=== PATIENT | male | born 1965 | race African-American/Black ===

== ENCOUNTER 2019-10-28 00:05 | Inpatient (IN) | payer SELFPAY ==
[2019-10-28] MEDS ORDERED: hydrALAZINE 20 MG/ML VIAL ONE (00:29)
[2019-10-28] MEDS ORDERED: niCARdipine 20MG In NaCl 20 MG/200 ML BAG ONE (01:00)
[2019-10-28] MEDS ORDERED: niCARdipine 25 MG in Sodium Chloride 0.9% 250 ML 240 ML IVPB SCH (03:00)
[2019-10-28 03:04] LABS: Troponin I 0.053 ng/mL (< 0.028)
[2019-10-28] MEDS ORDERED: Acetaminophen 650 MG Suppository PR PRN (03:11)
[2019-10-28] MEDS ORDERED: Ondansetron ODT 4 MG TAB PO PRN (03:11)
[2019-10-28] MEDS ORDERED: Senokot S 8.6-50 MG TAB PO PRN (03:11)
[2019-10-28] MEDS ORDERED: Ondansetron PF 4 MG/2 ML Vial IVP PRN (03:11)
[2019-10-28] MEDS ORDERED: Acetaminophen 325 MG TAB PO PRN (03:11)
[2019-10-28] MEDS ORDERED: Guaifenesin DM 100-10/5 ML UDCUP PO PRN (03:11)
[2019-10-28] MEDS ORDERED: niCARdipine 25 MG in Sodium Chloride 0.9% 250 ML 250 ML IVPB SCH (03:15)
[2019-10-28] MEDS ORDERED: Nitroglycerin 2% Ointment 1 INCH/1 GM Packet TOP SCH (03:15)
[2019-10-28] MEDS ORDERED: Diazepam 5 MG TAB PO PRN (03:18)
[2019-10-28] MEDS ORDERED: Thiamine HCl 200 MG/2 ML VIAL IM SCH (03:30)
[2019-10-28] MEDS ORDERED: Diazepam 5 MG TAB PO SCH (03:30)
[2019-10-28 04:25] LABS: #Basophils 0.1 thou/uL (0.0-0.2); #Lymphocytes 1.7 thou/uL (1.20-3.40); #Monocytes 0.4 thou/uL (0.11-0.59); #Neutrophils 3.3 thou/uL (1.40-6.50); %Eosinophils 0.4 % (0.0-10.0); %Lymphocytes 30.5 % (21.0-51.0); %Monocytes 7.9 % (0.0-10.0); %Neutrophils 60.2 % (42.0-75.0); Hemoglobin 17.2 g/dL (14.0-18.0); Mean Corpuscular HGB CONC 31.7 g/dL (32.0-36.0); Mean Corpuscular Hemoglobin 29.4 pg (27.0-31.0); Mean Corpuscular Volume 92.5 fL (78.0-98.0); Mean Platelet Volume 7.9 fL (7.4-10.4); Platelet Count 402 thou/uL (130-400); RBC Distribution Width 13.3 % (11.5-14.5); Red Blood Cell (RBC) Count 5.87 mill/uL (4.70-6.10); White Blood Cell (WBC) Count 5.5 thou/uL (4.8-10.8)
[2019-10-28 04:32] LABS: Anion Gap 18 mmol/L (10-20); BUN (Urea Nitrogen) 28 mg/dL (8.4-25.7); Calc. Creatinine Clearance 57 mL/min (70-130); Calcium 9.7 mg/dL (7.8-10.44); Carbon Dioxide 24 mmol/L (22-29); Chloride 102 mmol/L (98-107); Estimated GFR-MDRD 50; Glucose 95 mg/dL (70-105); Potassium 3.5 mmol/L (3.5-5.1); Sodium 140 mmol/L (136-145)
--- NOTE | 2019-10-28 04:38 | HP ---
PRIMARY CARE PHYSICIAN: None. CHIEF COMPLAINT: Edema. HISTORY OF PRESENT ILLNESS: This is a 54-year-old male with no known past medical history, who does abuse alcohol. He presents with 1 to 1-1/2 week history of increasing lower extremity edema. This is associated with some orthopnea and paroxysmal nocturnal dyspnea and with a very short episode of sharp left-sided chest pain about a week ago that was self-limited. The patient reports that his edema symptoms in his lower extremities got worse over the week. He also had started swelling on his scrotum and upper legs and so he went to the emergency room in [place]. There, he was found to have acute congestive heart failure with severely elevated blood pressures, significant edema, elevated brain natriuretic peptide, also elevated D-dimer and elevated creatinine. The patient was given Lasix and nitroglycerin and transferred here. His blood pressures remained uncontrolled into the 200 systolic and so he was given hydralazine and then started on nicardipine drip and admitted to the CCU. The patient reports that the edema of his scrotum and upper legs had gone. The lower extremity edema is improving. He has been peeing a lot since the Lasix in the in the emergency room. He has no chest pain or current shortness of breath, overall is feeling better. REVIEW OF SYSTEMS: CONSTITUTIONAL: No fevers. No chills. EYES: No double vision or blurred vision. ENT: No congestion, drainage, or sore throat. CARDIOVASCULAR: See HPI. PULMONARY: See HPI. No current coughing, wheezing, or shortness of breath. GASTROINTESTINAL: No abdominal pain. No nausea or vomiting. No diarrhea or constipation. GENITOURINARY: No dysuria or hematuria. MUSCULOSKELETAL: No muscle aches or joint pains, but he does have some soreness in his feet and ankles from walking with swollen legs. SKIN: No rashes or lesions noted. NEUROLOGIC: No numbness, tingling, or focal weakness. The patient does report that he stopped drinking any alcohol about 3 days ago because he was concerned about his worsening symptoms. He has not had any shakiness or withdrawal symptoms. PAST MEDICAL HISTORY: None. PAST SURGICAL HISTORY: Leg surgery as a child for fracture repair. SOCIAL HISTORY: The patient reports he drinks 8 to 9 beers per day along with 2 to 3 whiskies. No tobacco use. No illicit drug use. He is single, lives by himself. He is a full code. Should he be incapacitated, his medical decision maker would be his mother, Liza Grant. FAMILY HISTORY: Mother just recently developed some sort of mild heart problem. No other known family medical history. ALLERGIES: NO KNOWN DRUG ALLERGIES. CURRENT MEDICATIONS: None. PHYSICAL EXAMINATION: VITAL SIGNS: Blood pressure 147/101, pulse 103, respirations 22, temperature 97.9, O2 saturation 100% on room air. GENERAL: This is a well-developed, well-nourished -[place]ron[place] male, in no acute distress. HEENT: Pupils are equal, round, and reactive to light. Oropharynx clear without lesions, erythema, or exudate. NECK: Supple. No lymphadenopathy. No thyroid nodules or enlargement. He has some mild JVD. No hepatojugular reflux. HEART: Regular rhythm. Mildly tachycardic. No murmurs, rubs, or gallops. LUNGS: Clear to auscultation bilaterally. No wheezes, crackles, or rhonchi. ABDOMEN: Soft, nontender to palpation. Normoactive bowel sounds. No hepatosplenomegaly or other masses. EXTREMITIES: The patient has 1+ pitting edema to feet, ankles, and legs. This is improved since being in the outside emergency room per the patient. SKIN: No rashes or other lesions noted. NEUROLOGIC: The patient moves all extremities equally. No facial droop. PSYCHIATRIC: Alert and oriented x3. Normal mood and affect. DIAGNOSTIC STUDIES: LABORATORY RESULTS: CBC grossly within normal limits. Coagulation profile with an elevated D-dimer at 3.03. Complete metabolic panel is notable for a potassium of 3.4, carbon dioxide of 21, BUN of 30, creatinine of 1.8, alkaline phosphatase of 121, creatine kinase of 203, the rest is normal. Initial troponin is 0.028 and increased to 0.053 on recheck. Brain natriuretic peptide was elevated at 1819. Urinalysis was negative for infection. Toxicology screen was negative for any illicit drugs. IMAGING STUDIES: Chest x-ray; I did review the chest x-ray done in the emergency room along with the radiologist's report. It does show some cardiomegaly with pulmonary vascular congestion and possible edema consistent with congestive heart failure. EKG done in the emergency room shows sinus tachycardia at 107 beats per minute with no ectopic beats. Normal conduction. There was some T-wave inversions in V4, V5, and V6 and Q-waves in lead 3. ASSESSMENT: 1. Acute congestive heart failure, uncertain etiology, undetermined type. We will continue the patient's Lasix, will control blood pressure, and we will get an echocardiogram. The patient's CHF may be due to direct toxic effect of alcohol versus long-standing uncontrolled hypertension versus coronary artery disease in origin. We will consult Cardiology to assist with management. We will start the patient on carvedilol and lisinopril. 2. Hypertensive emergency. We will continue Cardene drip and wean off as tolerated as we give Lasix, carvedilol, and lisinopril to improve blood pressure control. 3. Alcohol abuse. We will put the patient on ASE protocol in case if he develops any withdrawal symptoms. 4. Renal failure, uncertain baseline creatinine levels. This is likely elevated due to his acute congestive heart failure. We will watch for any improvement as we diurese. 5. Elevated D-dimer. We will get V/Q scan to rule out pulmonary embolism. 6. Gastrointestinal prophylaxis. Put the patient on Pepcid twice a day. 7. Deep venous thrombosis prophylaxis. Put the patient on Lovenox subcu. 8. Code status. The patient is a full code. Should he be incapacitated, his mother would be his medical decision maker, her name is Liza English. Job ID: [id number]
[2019-10-28 05:23] LABS: Troponin I 0.062 ng/mL (< 0.028)
[2019-10-28] MEDS: Furosemide 40 MG/4 ML VIAL SLOW IVP SCH ×2 (06:10→16:24)
--- NOTE | 2019-10-28 08:14 | CON ---
DATE OF CONSULTATION: 10/28/2019 CONSULTING PHYSICIAN: Dr. Sinclair. REASON FOR CONSULTATION: Hypertensive emergency. HISTORY OF PRESENT ILLNESS: Mr. Rudy English is a 54-year-old male, who was admitted last night with increasing shortness of breath and lower extremity edema. He was found to be in profound acute congestive heart failure with grossly elevated blood pressure and BNP. He responded well to diuretics and blood pressure control with IV nicardipine. He is now off the drip. He has no previous medical history. PAST MEDICAL HISTORY: None. PAST SURGICAL HISTORY: Leg surgery for a fracture repair. SOCIAL HISTORY: Drinks 8 to 9 beers a day with 2 to 3 whiskeys a day. Nonsmoker. Does not consume alcohol. 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 FAMILY MEDICAL HISTORY: Remarkable for some kind of heart problem in his mother. ALLERGIES: NONE. MEDICATIONS: None. REVIEW OF SYSTEMS: Twelve-point review of systems is otherwise negative. PHYSICAL EXAMINATION: VITAL SIGNS: Temperature 98.5, pulse 87, blood pressure 145/97, O2 saturation 100%. GENERAL: He is a pleasant middle-aged male in no acute distress. HEENT: Unremarkable. NECK: No adenopathy or JVD. CARDIAC: S1, S2, regular with 3/6 holosystolic murmur at the left sternal border. LUNGS: Decreased breath sounds at the bases. ABDOMEN: Soft and nontender to palpation. EXTREMITIES: No clubbing or cyanosis. Trace pedal edema. LABORATORY DATA: Sodium 140, potassium 3.5, chloride 102, CO2 of 24, BUN 28, creatinine 1.7, and glucose 95. Troponin 0.062. BNP was over 1800. White blood cell count 5.5, hematocrit 54.3, and platelet count 402. His D-dimer was also noted to be elevated above 3. Chest x-ray shows pulmonary edema, cardiomegaly. ASSESSMENT: 1. Acute systolic heart failure. 2. Hypertensive emergency. 3. Alcohol abuse. 4. Polycythemia. 5. Acute renal insufficiency/chronic kidney disease. 6. Alcohol abuse. PLAN: 1. The patient will likely need to be seen by Cardiology and worked up for ischemic heart disease. Preliminary echo shows grossly diminished ejection fraction. 2. I doubt he has thromboembolic disease. Apparently, he cannot get a V/Q scan because of COVID-19 limitations on studies at the current time. Therefore, I will go ahead and just get Doppler studies of the lower extremities to rule out DVT. 3. He is stable for transfer to telemetry from my standpoint. Job ID: [id number]
[2019-10-28] MEDS: Enoxaparin Sodium 40 MG/0.4 ML SYRINGE SC SCH (09:18)
[2019-10-28] MEDS: Lisinopril 2.5 MG TAB PO SCH (09:18)
[2019-10-28] MEDS: Nitroglycerin 2% Ointment 1 INCH/1 GM Packet TOP SCH ×2 (09:18→20:42)
[2019-10-28] MEDS: Carvedilol 6.25 MG TAB PO SCH ×2 (09:19→20:41)
[2019-10-28] MEDS: Famotidine 20 MG TAB PO SCH ×2 (09:19→20:42)
[2019-10-28] MEDS: Folic Acid 1 MG TAB PO SCH (09:19)
[2019-10-28] MEDS: Aspirin Chewable 81 MG TAB PO SCH (09:19)
[2019-10-28] MEDS: Multivitamin W/ Minerals 1 TAB PO SCH (09:19)
--- NOTE | 2019-10-28 09:32 | ULT ---
EXAM: Bilateral lower extremity venous Doppler HISTORY: Bilateral lower extremity edema. FINDINGS: Grayscale, color-flow, Doppler evaluation, spectral analysis of the bilateral lower extremities venou s structures is performed with 2-D imaging. The bilateral common femoral, superficial femoral, popliteal, posterior tibial, proximal greater saphenous and profunda femoral veins are imaged. There is normal luminal compressibility, flow, and augmentation in the visualized deep venous structu res of the bilateral lower extremities. There is a lobulated anechoic cystic structure seen in the popliteal fossa measuring 5.1 cm x 3.5 cm x 1.8 cm. Color flow evaluation does not demonstrate flow within this structure. This is most suggestive of a Sheffield's cyst. IMPRESSION: 1. No evidence of a deep vein thrombosis in the visualized deep venous structures bilateral lower ext remities. 2. Large Sheffield's cyst right popliteal fossa.
--- NOTE | 2019-10-28 09:33 | PDOC.HOSPP ---
- Subjective Encounter Date: 10/28/19 Encounter Time: 09:31 Subjective: Mr. English was seen today in follow-up of hypertensive crisis and hypertensive crisis. He says he feels " great" . He is less short of breath, and the swelling in his lower extremities has improved. He can not remember when he saw a physician- likely more than a year. - Objective Vital Signs & Weight: Vital Signs (12 hours) Temp Pulse BP Pulse Ox 10/28/19 09:18 90 138/96 H 10/28/19 08:00 100 10/28/19 07:00 98.5 F 10/28/19 04:00 97.9 F 10/28/19 03:00 99 Weight Weight 179 lb 14.355 oz Most Recent Monitor Data Heart Rate from ECG 97 NIBP 147/104 NIBP BP-Mean 118 Respiration from ECG 28 SpO2 100 I&O: 10/27/19 10/28/19 10/29/19 06:59 06:59 06:59 Intake Total 701 Output Total 2550 2500 Balance -1849 -2500 Result Diagrams: 10/28/19 03:27 10/28/19 03:27 Hospitalist ROS - Medication Medications: Active Medications Generic Name Dose Route Start Last Admin Trade Name Freq PRN Reason Stop Dose Admin Aspirin 81 mg 10/28/19 09:00 10/28/19 09:19 Aspirin Chewable PO 81 mg DAILY KAROL Administration Carvedilol 6.25 mg 10/28/19 09:00 10/28/19 09:19 Coreg PO 6.25 mg BID KAROL Administration Enoxaparin Sodium 40 mg 10/28/19 09:00 10/28/19 09:18 Lovenox SC 40 mg 0900 KAROL Administration Famotidine 20 mg 10/28/19 09:00 10/28/19 09:19 Pepcid PO 20 mg BID KAROL Administration Folic Acid 1 mg 10/28/19 09:00 10/28/19 09:19 Folvite PO 1 mg DAILY KAROL Administration Furosemide 40 mg 10/28/19 06:00 10/28/19 06:10 Lasix SLOW IVP 40 mg 0600,1400 KAROL Administration Iron/Minerals/Multivitamins 1 tab 10/28/19 09:00 10/28/19 09:19 Theragran M PO 1 tab DAILY KAROL Administration Lisinopril 2.5 mg 10/28/19 09:00 10/28/19 09:18 Zestril PO 2.5 mg DAILY KAROL Administration Nitroglycerin 1 inch 10/28/19 09:00 10/28/19 09:18 Nitro-Bid 2% Ointment TOP 1 inch BID KAROL Administration - Exam Eye: PERRL Respiratory: CTAB (+ occasional rale at the base), no wheezes, no ronchi Gastrointestinal: soft, non-tender, non-distended, normal bowel sounds, no palpable masses, no hepatomegaly Hosp A/P (1) Hypertensive crisis Code(s): I16.9 - HYPERTENSIVE CRISIS, UNSPECIFIED Status: Acute (2) Acute heart failure Code(s): I50.9 - HEART FAILURE, UNSPECIFIED Status: Acute (3) Alcohol abuse Code(s): F10.10 - ALCOHOL ABUSE, UNCOMPLICATED Status: Acute - Plan * Hypertensive crisis- improved. He has been weaned off the cardene drip * Will transition him to oral medications * New onset CHF- this could be due to either uncontrolled HTN, Alcohol abuse, or both * Await Echo * Alcohol abuse- continue ASE protocol, and the dangers of alcohol abuse was discussed * Stable for transition out of the ICU
[2019-10-28] MEDS ORDERED: Lorazepam 1 MG TAB PO PRN (09:39)
--- NOTE | 2019-10-28 12:18 | CON ---
DATE OF CONSULTATION: 10/28/2019 INDICATION FOR CONSULTATION: A 54-year-old patient with new-onset congestive heart failure. HISTORY OF PRESENT ILLNESS: This is a very pleasant 54-year-old gentleman, who has had no previous cardiac history and no significant past medical history, presented after having a couple of weeks of lower extremity edema, he complained also of some scrotal edema. He denied any chest pain or significant shortness of breath. He did have some mild shortness of breath, but only with exertion. He has a long history of alcohol abuse. He drinks beer and 1 1/2 pints of whiskey a day, but has had no other significant risk factors of coronary artery disease. He denied any hypercholesterolemia, diabetes, or tobacco abuse. He was found to have significant hypertension when he arrived to the hospital by emergency room; however, this has improved overnight being on the Cardene drip and he denies any symptoms this morning. Echocardiogram has been performed and this shows severe decrease in left ventricular systolic function. Ejection fraction is estimated at 25% to 30%. The left ventricle is dilated moderately. The right ventricle is also mildly dilated. Both atria were dilated. He has mild mitral and tricuspid valve regurgitation. He also has [id number] pulmonary valve regurgitation and mild aortic valve regurgitation. 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 PAST MEDICAL HISTORY: Unremarkable for any significant operations or illnesses. MEDICATIONS: He is on no present medications. ALLERGIES: NONE. HE HAS BEEN GIVEN DIURETICS SINCE BEING IN THE HOSPITAL AND HE DIURESED SIGNIFICANTLY AND THE EDEMA HAS DECREASED. FAMILY HISTORY: His mother had what he describes as being a CVA, but otherwise there has been no family history of coronary artery disease. SOCIAL HISTORY: He is . I believe, he has been 2 to 3 times in the past. He has about 9 children through various relationships. He does continue to drink alcohol, but no tobacco abuse. REVIEW OF SYSTEMS: A 12-point review of systems was unremarkable except for what was noted in the history of present illness. PHYSICAL EXAMINATION: GENERAL: Reveals a well-developed, well-nourished gentleman, who is in no acute distress at this time. VITAL SIGNS: Blood pressure is about 150/103 at this time. Heart rate is about 86 and shows a regular rhythm. Respiratory rate is about 18. He is afebrile. HEENT: The head to be normocephalic and atraumatic. Carotid pulses are present. I did not hear any bruits. CHEST: Clear to auscultation at this time. I did not hear any rales, rhonchi, or wheezing. CARDIOVASCULAR: Reveals a regular rate and rhythm. I cannot hear any significant murmurs, heaves, thrills, bruits, or rubs. There was a normal S1 and S2. I cannot hear an S3 nor an S4 today. His chest otherwise was clear. ABDOMEN: Abdomen to be soft and nontender. Positive bowel sounds are present. EXTREMITIES: No clubbing or cyanosis. He had mild 1+ lower extremity edema with the feet and just above the ankles. Otherwise, no significant abnormalities were noted. Pedal pulses are present. NEUROLOGIC: The patient appears to be intact. SKIN: Warm and dry. LABORATORY DATA: His creatinine to be 1.8 and BUN was 30. Cardiac enzymes showed no evidence of myocardial infarction, but this could be considered a non-ST- segment elevation myocardial infarction type 2 as there was a slight increase in the cardiac enzymes at 0.028, the troponin now has increased up to 0.062. His BNP was significantly elevated at 1819. His WBC was 5.5, hemoglobin 17.2, hematocrit 54.3 with a platelet count of 402,000. Creatinine is 1.75 now with a BUN of 28. His chest x-ray showed evidence of cardiomegaly with what appears to be congestive heart failure symptoms with increased congestion. There were no obvious masses or nodules noted. IMPRESSION AND PLAN: A 54-year-old gentleman with new-onset congestive heart failure, which appears to be both diastolic as well as systolic. He does have some restrictive type pattern on the echocardiogram as well as severe decrease in left ventricular systolic function, which may be due to alcohol-induced cardiomyopathy or perhaps even genetic etiology of his cardiomyopathy. When he is better and diuresed, he will need to undergo stress testing or cardiac catheterization to evaluate his coronary status to ensure he does not have underlying coronary artery disease as the possible etiology of the cardiomyopathy. Also, he will need to undergo cholesterol studies to determine whether or not he has any significant hypercholesterolemia. We will continue to monitor the cardiac enzymes, but at this time he appears to be stable. We will continue to diurese the patient. His present medications at this time include magnesium. He has been on a Cardene drip, I believe this is now being tapered off. He is on Coreg 6.25 mg b.i.d. he has been placed on Lovenox as well as folic acid, Pepcid , Lasix is 40 mg IV b.i.d., lisinopril 2.5 mg a day, nitroglycerin ointment 1 inch b.i.d. He has also been given thiamine and magnesium as well as Tylenol and other p.r.n. medications. His Is and Os thus far, he has put out 2500 mL today, and yesterday, it was negative 1848 after putting out over 2.5 L yesterday after being given IV Lasix. We will continue to monitor the patient very carefully, but this time he denies any chest pain or significant shortness of breath, and based on his response to the diuretics, we will see how the patient does and then either schedule cardiac catheterization or stress testing to rule out evidence of underlying ischemia, but given the history of his cardiomyopathy, it may be best to proceed with a cardiac catheterization. If the ejection fraction does not improve after diuresis and medical management, he will need to be at least sent home with a LifeVest. Job ID: [id number] [email or web address]
[2019-10-29] MEDS ORDERED: Diazepam 5 MG TAB PO PRN (04:00)
[2019-10-29 05:00] LABS: Anion Gap 11 mmol/L (10-20); BUN (Urea Nitrogen) 20 mg/dL (8.4-25.7); Calc. Creatinine Clearance 64 mL/min (70-130); Calcium 8.5 mg/dL (7.8-10.44); Carbon Dioxide 30 mmol/L (22-29); Chloride 101 mmol/L (98-107); Estimated GFR-MDRD 57; Glucose 104 mg/dL (70-105); Potassium 3.4 mmol/L (3.5-5.1); Sodium 139 mmol/L (136-145)
[2019-10-29] MEDS: Furosemide 40 MG/4 ML VIAL SLOW IVP SCH ×2 (05:24→15:21)
[2019-10-29] MEDS ORDERED: Potassium Chloride 20 MEQ TAB PO SCH (09:00)
[2019-10-29] MEDS: Magnesium Oxide 400 MG TAB PO SCH (09:14)
[2019-10-29] MEDS: Lisinopril 2.5 MG TAB PO SCH (09:14)
[2019-10-29] MEDS: Multivitamin W/ Minerals 1 TAB PO SCH (09:15)
[2019-10-29] MEDS: Famotidine 20 MG TAB PO SCH ×2 (09:15→20:19)
[2019-10-29] MEDS: Thiamine 100 MG TAB PO SCH (09:15)
[2019-10-29] MEDS: Folic Acid 1 MG TAB PO SCH (09:16)
[2019-10-29] MEDS: Aspirin Chewable 81 MG TAB PO SCH (09:16)
[2019-10-29] MEDS: Carvedilol 6.25 MG TAB PO SCH ×2 (09:16→20:19)
[2019-10-29] MEDS: Nitroglycerin 2% Ointment 1 INCH/1 GM Packet TOP SCH ×2 (09:16→20:19)
[2019-10-29] MEDS: Enoxaparin Sodium 40 MG/0.4 ML SYRINGE SC SCH (09:17)
--- NOTE | 2019-10-29 09:45 | PDOC.CPN ---
- Subjective Date: 10/29/19 Time: 09:49 Interval history: The pt seen and examined. No overnight events. No cardiac complaints. - Objective Allergies/Adverse Reactions: Allergies Allergy/AdvReac Type Severity Reaction Status Date / Time No Known Allergies Allergy Verified 10/28/19 03:03 Visit Medications: Current Medications Acetaminophen (Tylenol) 650 mg PO Q4H PRN PRN Reason: Headache/Fever/Mild Pain (1-3) Last Admin: 10/28/19 18:38 Dose: 650 mg Acetaminophen (Tylenol) 650 mg AR Q4H PRN PRN Reason: Headache/Fever/Mild Pain (1-3) Aspirin (Aspirin Chewable) 81 mg PO DAILY [facility] Last Admin: 10/29/19 09:16 Dose: 81 mg Carvedilol (Coreg) 6.25 mg PO BID [facility] Last Admin: 10/29/19 09:16 Dose: 6.25 mg Diazepam (Valium) 5 mg PO Q4H PRN PRN Reason: FOR ASE 10 OR GREATER Enoxaparin Sodium (Lovenox) 40 mg SC 0900 [facility] Last Admin: 10/29/19 09:17 Dose: 40 mg Famotidine (Pepcid) 20 mg PO BID [facility] Last Admin: 10/29/19 09:15 Dose: 20 mg Folic Acid (Folvite) 1 mg PO DAILY [facility] Last Admin: 10/29/19 09:16 Dose: 1 mg Furosemide (Lasix) 40 mg SLOW IVP 0600,1400 [facility] Last Admin: 10/29/19 05:24 Dose: 40 mg Guaifenesin/Dextromethorphan (Robitussin Dm) 15 ml PO Q4H PRN PRN Reason: Cough Iron/Minerals/Multivitamins (Theragran M) 1 tab PO DAILY [facility] Last Admin: 10/29/19 09:15 Dose: 1 tab Lisinopril (Zestril) 2.5 mg PO DAILY [facility] Last Admin: 10/29/19 09:14 Dose: 2.5 mg Lorazepam (Ativan) 1 mg PO Q4H PRN PRN Reason: Anxiety/Agitation Magnesium Oxide (Magnesium Oxide) 400 mg PO DAILY [facility] Last Admin: 10/29/19 09:14 Dose: 400 mg Nitroglycerin (Nitro-Bid 2% Ointment) 1 inch TOP BID [facility] Last Admin: 10/29/19 09:16 Dose: 1 inch Ondansetron HCl (Zofran Odt) 4 mg PO Q6H PRN PRN Reason: Nausea/Vomiting Ondansetron HCl (Zofran) 4 mg IVP Q6H PRN PRN Reason: Nausea/Vomiting Potassium Chloride (K-Dur) 40 meq PO NOW [facility] Stop: 10/29/19 11:00 Last Admin: 10/29/19 09:13 Dose: 40 meq Senna/Docusate Sodium (Senokot S) 2 tab PO BID PRN PRN Reason: Constipation Sodium Chloride (Flush - Normal Saline) 10 ml IVF Q12HR [facility] Last Admin: 10/29/19 09:17 Dose: 10 ml Sodium Chloride (Flush - Normal Saline) 10 ml IVF PRN PRN PRN Reason: Saline Flush Thiamine HCl (Thiamine) 100 mg PO DAILY [facility] Last Admin: 10/29/19 09:15 Dose: 100 mg Vital Signs & Weight: Vital Signs Temp Pulse Resp BP Pulse Ox 10/29/19 09:07 99.1 F 91 14 129/96 H 98 10/29/19 02:57 97.5 F L 80 13 130/88 99 10/29/19 00:31 81 16 Admit Weight 179 lb 14.355 oz Weight 168 lb 4.8 oz - Physical Exam General: alert & oriented x3 HEENT: mucus membranes moist Neck: supple neck Cardiac: regular rate and rhythm, S1/S2 Lungs: decreased breath sounds - Labs Result Diagrams: 10/28/19 03:27 10/29/19 04:18 Troponin/CKMB Troponin I 0.062 ng/mL (< 0.028) H 10/28/19 04:41 - Telemetry Sinus rhythms and dysrhythmias: sinus rhythm - Assessment/Plan Assessment/Plan: 1. 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 HTN urgency - stable with current med 3. ETOH abuse - strongly recommend ETOH cessation MAR reviewed * Echo on 10/28/2019 with EF 25-30%, grade III dd, mild ERA, mod LAE, mild-mod MR, mild AR and TR, and mild-mod AR Pt. seen and eval. by me.I agree with the A/P by the GENETIC SUPERVISOR. If the creat. is stable then plan for cardiac cath in AM to evaluate for CAD. Will also re- evaluate the EF. If the EF if < 35% he will need a Life-Vest prior to d/c. Chest cleart. RRR, no edema,. I discussed the cardiac cath with the pt. Procedure and risks. If he is agree able then plan for cath in AM.
--- NOTE | 2019-10-29 11:01 | PDOC.HOSPP ---
- Subjective Encounter Date: 10/29/19 Encounter Time: 10:58 Subjective: Mr. English was seen today in follow-up of new onset CHF. He does not have any complaints today. He says he feels great. - Objective Vital Signs & Weight: Vital Signs (12 hours) Temp Pulse Resp BP Pulse Ox 10/29/19 09:07 99.1 F 91 14 129/96 H 98 10/29/19 02:57 97.5 F L 80 13 130/88 99 10/29/19 00:31 81 16 Weight Admit Weight 179 lb 14.355 oz Weight 168 lb 4.8 oz Most Recent Monitor Data Heart Rate from ECG 92 NIBP 148/113 NIBP BP-Mean 124 Respiration from ECG 23 SpO2 100 I&O: 10/28/19 10/29/19 10/30/19 06:59 06:59 06:59 Intake Total 701 1100 Output Total 4664 4762 Balance -8867 -2654 Result Diagrams: 10/28/19 03:27 10/29/19 04:18 Hospitalist ROS - Medication Medications: Active Medications Generic Name Dose Route Start Last Admin Trade Name Freq PRN Reason Stop Dose Admin Acetaminophen 650 mg 10/28/19 03:11 10/28/19 18:38 Tylenol PO 650 mg Q4H PRN Administration Headache/Fever/Mild Pain (1-3) Aspirin 81 mg 10/28/19 09:00 10/29/19 09:16 Aspirin Chewable PO 81 mg DAILY KAROL Administration Carvedilol 6.25 mg 10/28/19 09:00 10/29/19 09:16 Coreg PO 6.25 mg BID KAROL Administration Enoxaparin Sodium 40 mg 10/28/19 09:00 10/29/19 09:17 Lovenox SC 40 mg 0900 KAROL Administration Famotidine 20 mg 10/28/19 09:00 10/29/19 09:15 Pepcid PO 20 mg BID KAROL Administration Folic Acid 1 mg 10/28/19 09:00 10/29/19 09:16 Folvite PO 1 mg DAILY KAROL Administration Furosemide 40 mg 10/28/19 06:00 10/29/19 05:24 Lasix SLOW IVP 40 mg 0600,1400 KAROL Administration Iron/Minerals/Multivitamins 1 tab 10/28/19 09:00 04/16/20 09:15 Theragran M PO 1 tab DAILY KAROL Administration Lisinopril 2.5 mg 10/28/19 09:00 10/29/19 09:14 Zestril PO 2.5 mg DAILY KAROL Administration Magnesium Oxide 400 mg 10/29/19 09:00 10/29/19 09:14 Magnesium Oxide PO 400 mg DAILY KAROL Administration Nitroglycerin 1 inch 10/28/19 09:00 10/29/19 09:16 Nitro-Bid 2% Ointment TOP 1 inch BID KAROL Administration Potassium Chloride 40 meq 10/29/19 09:00 10/29/19 09:13 K-Dur PO 10/29/19 11:00 40 meq NOW KAROL Administration Sodium Chloride 10 ml 10/29/19 09:00 10/29/19 09:17 Flush - Normal Saline IVF 10 ml Q12HR KAROL Administration Thiamine HCl 100 mg 10/29/19 09:00 10/29/19 09:15 Thiamine PO 100 mg DAILY KAROL Administration - Exam Eye: PERRL Heart: RRR, no murmur, no gallops, no rubs, normal peripheral pulses Respiratory: CTAB, no wheezes, no rales, no ronchi, normal chest expansion Gastrointestinal: soft, non-tender, non-distended, normal bowel sounds, no palpable masses, no hepatomegaly Extremities: no cyanosis, 1+ LE edema (+ 1+ ankle edema in both lower extremities) Hosp A/P (1) Hypertensive crisis Code(s): I16.9 - HYPERTENSIVE CRISIS, UNSPECIFIED Status: Acute (2) Acute heart failure Code(s): I50.9 - HEART FAILURE, UNSPECIFIED Status: Acute (3) Alcohol abuse Code(s): F10.10 - ALCOHOL ABUSE, UNCOMPLICATED Status: Acute - Plan * Hypertensive crisis-resolved * HTN- blood pressure is much improved, on Lisinopril and carvediolol * New onset CHF- Cardiology input noted. Plan is for heart cath tomorrow * Alcohol abuse- continue ASE protocol, * Continue to monitor electrolytes
[2019-10-29] MEDS ORDERED: Lisinopril 5 MG TAB PO SCH (17:45)
[2019-10-29] MEDS ORDERED: Communication Order-Pharmacy FS SCH (21:45)
[2019-10-30 05:03] LABS: #Basophils 0.1 thou/uL (0.0-0.2); #Eosinphils 0.2 thou/uL (0.0-0.7); #Monocytes 0.6 thou/uL (0.11-0.59); #Neutrophils 1.9 thou/uL (1.40-6.50); %Basophils 1.3 % (0.0-1.0); %Eosinophils 3.7 % (0.0-10.0); %Lymphocytes 41.9 % (21.0-51.0); %Monocytes 12.6 % (0.0-10.0); %Neutrophils 40.5 % (42.0-75.0); Hemoglobin 14.9 g/dL (14.0-18.0); Mean Corpuscular HGB CONC 33.6 g/dL (32.0-36.0); Mean Corpuscular Hemoglobin 31.1 pg (27.0-31.0); Mean Corpuscular Volume 92.6 fL (78.0-98.0); Mean Platelet Volume 7.5 fL (7.4-10.4); Platelet Count 345 thou/uL (130-400); RBC Distribution Width 13.1 % (11.5-14.5); Red Blood Cell (RBC) Count 4.78 mill/uL (4.70-6.10); White Blood Cell (WBC) Count 4.7 thou/uL (4.8-10.8)
[2019-10-30 05:23] LABS: Anion Gap 10 mmol/L (10-20); BUN (Urea Nitrogen) 18 mg/dL (8.4-25.7); Calc. Creatinine Clearance 55 mL/min (70-130); Calcium 8.1 mg/dL (7.8-10.44); Carbon Dioxide 30 mmol/L (22-29); Chloride 100 mmol/L (98-107); Estimated GFR-MDRD 52; Glucose 94 mg/dL (70-105); Potassium 3.4 mmol/L (3.5-5.1); Sodium 137 mmol/L (136-145)
[2019-10-30] MEDS: Magnesium Oxide 400 MG TAB PO SCH (06:00)
[2019-10-30] MEDS: Furosemide 40 MG/4 ML VIAL SLOW IVP SCH (06:00)
[2019-10-30] MEDS: Carvedilol 6.25 MG TAB PO SCH ×2 (06:00→21:53)
[2019-10-30] MEDS: Famotidine 20 MG TAB PO SCH ×2 (06:01→21:52)
[2019-10-30] MEDS: Folic Acid 1 MG TAB PO SCH (06:01)
[2019-10-30] MEDS: Aspirin Chewable 81 MG TAB PO SCH (06:01)
[2019-10-30] MEDS: Nitroglycerin 2% Ointment 1 INCH/1 GM Packet TOP SCH (06:02)
[2019-10-30] MEDS: Multivitamin W/ Minerals 1 TAB PO SCH (06:02)
[2019-10-30] MEDS: Thiamine 100 MG TAB PO SCH (06:02)
[2019-10-30] MEDS ORDERED: Heparin 10,000 UNITS/1 ML VIAL ONE (07:22)
[2019-10-30] MEDS ORDERED: Verapamil 5 MG/2 ML VIAL ONE (07:22)
[2019-10-30] MEDS ORDERED: Nitroglycerin 100MG/250ML BOT 250 ML ONE (07:22)
[2019-10-30] MEDS ORDERED: Midazolam HCl 2 mg/2 ml Vial ONE (07:42)
[2019-10-30] MEDS ORDERED: Nitroglycerin 0.4 MG TAB (25 Tab Bottle) SL PRN (08:30)
[2019-10-30] MEDS ORDERED: Acetaminophen/Codeine 30-300mg Tablet PO PRN ×2 (08:30)
[2019-10-30] MEDS ORDERED: Sodium Chloride 0.9% 200 ML IV PRN (08:30)
--- NOTE | 2019-10-30 08:37 | PDOC.CPN ---
- Subjective Date: 10/30/19 Time: 08:00 - Review of Systems General: reports: fever/chills, weight/appetite/sleep changes Respiratory: reports: cough, shortness of breath Cardiovascular: reports: chest pain, edema Gastrointestinal: reports: nausea, vomiting Musculoskeletal: reports: pain, swelling Neurological: reports: numbness - Objective Allergies/Adverse Reactions: Allergies Allergy/AdvReac Type Severity Reaction Status Date / Time No Known Allergies Allergy Verified 10/28/19 03:03 Visit Medications: Current Medications Acetaminophen (Tylenol) 650 mg PO Q4H PRN PRN Reason: Headache/Fever/Mild Pain (1-3) Last Admin: 10/28/19 18:38 Dose: 650 mg Acetaminophen (Tylenol) 650 mg [place] Q4H PRN PRN Reason: Headache/Fever/Mild Pain (1-3) Acetaminophen/Codeine Phosphate (Tylenol #3) 1 tab PO Q4H PRN PRN Reason: Mild Pain (1-3) Acetaminophen/Codeine Phosphate (Tylenol #3) 2 tab PO Q4H PRN PRN Reason: Moderate Pain (4-6) Aspirin (Aspirin Chewable) 81 mg PO DAILY [facility] Last Admin: 10/30/19 06:01 Dose: 81 mg Carvedilol (Coreg) 6.25 mg PO BID [facility] Last Admin: 10/30/19 06:00 Dose: 6.25 mg Diazepam (Valium) 5 mg PO Q4H PRN PRN Reason: FOR ASE 10 OR GREATER Famotidine (Pepcid) 20 mg PO BID [facility] Last Admin: 10/30/19 06:01 Dose: 20 mg Folic Acid (Folvite) 1 mg PO DAILY [facility] Last Admin: 10/30/19 06:01 Dose: 1 mg Furosemide (Lasix) 40 mg SLOW IVP 0600,1400 [facility] Last Admin: 10/30/19 06:00 Dose: 40 mg Guaifenesin/Dextromethorphan (Robitussin Dm) 15 ml PO Q4H PRN PRN Reason: Cough Sodium Chloride (Normal Saline 0.9%) 200 mls @ 0 mls/hr IV ONE PRN PRN Reason: SBP < 90 Iron/Minerals/Multivitamins (Theragran M) 1 tab PO DAILY [facility] Last Admin: 10/30/19 06:02 Dose: 1 tab Lorazepam (Ativan) 1 mg PO Q4H PRN PRN Reason: Anxiety/Agitation Magnesium Oxide (Magnesium Oxide) 400 mg PO DAILY [facility] Last Admin: 10/30/19 06:00 Dose: 400 mg Miscellaneous Information (Communication Order-Pharmacy) 0 each FS ONE [facility] Stop: 10/30/19 21:46 Nitroglycerin (Nitro-Bid 2% Ointment) 1 inch TOP BID [facility] Last Admin: 10/30/19 06:02 Dose: 1 inch Nitroglycerin (Nitrostat) 0.4 mg SL Q5MIN PRN PRN Reason: Chest Pain Ondansetron HCl (Zofran Odt) 4 mg PO Q6H PRN PRN Reason: Nausea/Vomiting Ondansetron HCl (Zofran) 4 mg IVP Q6H PRN PRN Reason: Nausea/Vomiting Senna/Docusate Sodium (Senokot S) 2 tab PO BID PRN PRN Reason: Constipation Sodium Chloride (Flush - Normal Saline) 10 ml IVF Q12HR [facility] Last Admin: 10/30/19 06:02 Dose: 10 ml Sodium Chloride (Flush - Normal Saline) 10 ml IVF PRN PRN PRN Reason: Saline Flush Thiamine HCl (Thiamine) 100 mg PO DAILY [facility] Last Admin: 10/30/19 06:02 Dose: 100 mg Vital Signs & Weight: Vital Signs Temp Pulse Resp BP BP Pulse Ox 10/30/19 03:35 98.2 F 75 18 108/69 99 10/29/19 23:49 79 120/80 Admit Weight 179 lb 14.355 oz Weight 163 lb 3.2 oz - Quality Measures CV meds: Beta Analy: Yes, LESVIA/ARB: No (renal insuff.), ASA: Yes - Physical Exam General: alert & oriented x3 HEENT: normocephaly Neck: supple neck, no masses, no bruit Cardiac: no murmur, regular rate, regular rhythm Lungs: clear to auscultation Neuro: grossly intact Abdomen: unremarkable Extremities: no cyanosis, no edema - Labs Result Diagrams: 10/30/19 04:39 10/30/19 04:39 Troponin/CKMB Troponin I 0.062 ng/mL (< 0.028) H 10/28/19 04:41 - Assessment/Plan Assessment/Plan: 1. Acute on Chronic combined HF with EF 25-30% and grade III dd - stable with RA ; on Coreg, Lisinopril, and Lasix; the pt underwent cath this AM. Single vessel CAD,LAD: 50% mid. Large diameter vessels. EF 15-20% 2. HTN urgency - stable with current med 3. ETOH abuse - strongly recommend ETOH cessation MAR reviewed 4. Renal insufficiency: creat. is elevated but stable. Likely due to poor cardiac output. * Echo on 10/28/2019 with EF 25-30%, grade III dd, mild ERA, mod LAE, mild-mod MR, mild AR and TR, and mild-mod OH EF by cath appears 15-20%. Will ask Dr. Nieves, CHF cardiology, to see pt. He will need a life vest prior to d/c. In the future if the EF does not improve then he will need an AICD +/- LVAD and possible transplant.
[2019-10-30] MEDS ORDERED: Lisinopril 5 MG TAB PO SCH (09:00)
[2019-10-30] MEDS: Enoxaparin Sodium 40 MG/0.4 ML SYRINGE SC SCH (09:45)
[2019-10-30] MEDS ORDERED: Magnesium 2 GM/50 ML 2 GM in Premix Bag 1 BAG IVPB SCH (12:45)
[2019-10-30] MEDS ORDERED: Magnesium Sulfate 2 GM in Sodium Chloride 0.9% 100 ML IVPB SCH (12:45)
--- NOTE | 2019-10-30 13:06 | PRG ---
DATE OF SERVICE: 10/30/2019 SUBJECTIVE: A 54-year-old male with no past medical history, presented to the emergency room on 28 October 2019 with bilateral lower extremity swelling along with shortness of breath. His workup was consistent with congestive heart failure exacerbation along with hypertensive crisis. He was placed on Cardene drip initially that was later weaned off. He has shown good improvement with diuretics. His echocardiogram showed ejection fraction of 25% to 30% with diastolic dysfunction. Cardiac catheterization showed ejection fraction of 15% to 20% with mid LAD 50% lesion. The patient denies any chest pain, shortness of breath, or lower extremity swelling at this time. OBJECTIVE: VITAL SIGNS: Temperature 98.2, pulse 75, respirations of 18, blood pressure 108/69, O2 saturation 99% on room air. GENERAL: A 54-year-old male in no apparent distress. LUNGS: Showed a few rhonchi at bases. No wheezing. HEART: S1, S2 present. Regular. ABDOMEN: Soft. Bowel sounds present. EXTREMITIES: No edema or calf tenderness. Intake of 1100, output 3675. Weight is 163 pounds. Telemetry monitoring by my review showed sinus rhythm. REVIEW OF SYSTEMS: No patient denies any nausea, vomiting, or new focal deficit. CURRENT MEDICATIONS: Reviewed. The patient is on aspirin, carvedilol, Lovenox, Pepcid, IV Lasix, magnesium, nitroglycerin patch. LABORATORY FINDINGS: Potassium today was 3.4 with sodium 137, creatinine 1.69, magnesium 1.8. IMPRESSION: 1. New-onset systolic heart failure exacerbation. 2. Hypertensive crisis, requiring Cardene drip. 3. Chronic alcohol abuse. 4. Coronary artery disease. 5. Chronic kidney disease, stage 3. 6. Elevated troponin secondary to demand ischemia/type 2 myocardial infarction present on admission. 7. Hypokalemia. 8. Hypomagnesemia. PLAN: Continue telemetry monitoring. We will replace magnesium and potassium. We will change Lasix to oral. Continue fluid restriction. Continue carvedilol at 6.25 mg b.i.d. We will hold LESVIA inhibitor, ARB and Aldactone due to renal insufficiency. We will discontinue nitroglycerin patch. We will recheck electrolytes in a.m. we will continue low-dose aspirin. The patient understands the above plan of care. Job ID: [id number] [facility]
[2019-10-30] MEDS ORDERED: Iopamidol 370 76% 100 ML VIAL ONE (13:33)
[2019-10-30] MEDS ORDERED: Lorazepam 1 MG TAB PO PRN (16:49)
[2019-10-30] MEDS ORDERED: Lorazepam 1 MG TAB PO SCH (17:00)
[2019-10-30] MEDS: Potassium Chloride 20 MEQ TAB PO SCH (17:43)
--- NOTE | 2019-10-30 18:56 | CON ---
DATE OF CONSULTATION: 10/30/2019 REASON FOR CONSULT: Management of decompensating heart failure. HISTORY OF PRESENT ILLNESS: Mr. Rudy English, a 54-year-old gentleman without prior history of heart disease, was admitted for decompensating heart failure. He drank much alcohol. He has been drinking about 8 beers per day and 3 glasses of whiskey a day for about 10 years. 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 As late as 6 months ago, he did not have any trouble working, he did not have any trouble walking as far as he wants to. About 6 weeks ago, he developed progressive dyspnea on exertion. He found himself becoming more and more short of breath with less and less activity. He progressed to the point where he could not walk from first floor to second floor. He will have to take a few steps, rest, take a few steps, and rest before he can complete walk up from first floor to second floor. After developing the shortness of breath, he also noticed that he began to have lower extremity edema. He said edema first appeared on the right foot, then the left foot, eventually it involved his calves and started going toward his knees. He found walking becoming more difficult because his feet and legs were heavier and heavier and his shortness of breath was getting worse. Toward the end, about 3 days before admission, he found he can no longer sleep lying flat. He had to elevate his head higher and higher to the point where he is sleeping sitting straight up and his edema became worse. It was noticed by his family members. Combination of progressive shortness of breath on exertion, increasing edema, and inability to move well caused him to seek care. He was seen at [facility] in [place]. There, he was first admitted and received IV diuretics to remove edema. Then he was transferred over to [facility]. It was also reported that he became very hypertensive. Due to uncontrolled severe hypertension, nicardipine drip was started and the blood pressure was lowered with nicardipine drip in the CCU. He also received IV Lasix. Apparently, the IV Lasix was quite effective in reducing his edema. IV Lasix was stopped yesterday and then he was switched over to p.o. Lasix once a day today. Coronary angiogram was done today also, it showed a 50% stenosis in the mid left anterior descending artery. There is no other significant coronary artery disease. This single-vessel disease does not explain the amount of the cardiomyopathy. An echocardiogram was also done. it showed dilated left ventricle at 6.5 cm with ejection fraction of about 20%. Ventriculogram was done on the catheterization showed similar low ejection fraction. PAST MEDICAL HISTORY: 1. Coronary artery disease as seen by the catheterization. 2. Likely hyperlipidemia since he has coronary artery disease. 3. Likely alcoholism since he was using so much alcohol daily. 4. He has probable chronic renal disease since his first set of creatinine was 1.75. SOCIAL HISTORY: 1. He denied ever smoking cigarettes. 2. Alcohol use: He drinks about 8 beers per day plus 2 to 3 cups of whiskey in addition to the beers. He has been doing it for 10 years. 3. He denied illicit drug use. 4. 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 5. He has never been ; however, he lives with most likely girlfriend and has multiple children with multiple partners. MEDICATIONS: His current cardiac medications include: 1. Aspirin 81 mg daily. 2. Carvedilol 6.25 mg b.i.d. 3. Lasix 40 mg daily. PHYSICAL EXAMINATION: Telemetry was reviewed. He had 2 instances of what appears to be Mobitz type 2 second-degree heart block. You can see the P wave, but then there is no QRS afterwards. This occurred with a fixed NV duration, thus is suspicious for Mobitz type 2 second-degree heart block. He also has 1 short run of 4-beat nonsustained ventricular tachycardia. VITAL SIGNS: He also has labile blood pressure, goes from 100 to 156 from a few minutes to one after the other. Currently, his heart rate is 84 and blood pressure 128/93. GENERAL: He is alert and conversational, sitting comfortably in bed, but he appears to be anxious, wants to talk quickly, somewhat stutters. He also appears to be short of breath. He really cannot sustain long sentences. HEENT: Shows EOMI. Oropharynx benign with moist mucosa. NECK: His JVP is elevated about 11 cm with positive hepatojugular reflux. LUNGS: Good air movements bilateral, and clear to auscultation bilaterally. There are no rales. CARDIAC: Regular rate and rhythm with occasional irregularity. There is 1/6 diastolic murmur at the right sternal border. There is 2/6 systolic murmur at the apex with radiation to left axilla and his PMI is inferiorly and laterally displaced. ABDOMEN: Soft, nontender. Positive bowel sounds. EXTREMITIES: His lower extremities are currently without edema; however, his feet are cool to touch with positive dorsalis pedis bilaterally. LABORATORY VALUES: Sodium 137, potassium 3.4, bicarb is 30, BUN 18, creatinine 1.69. ASSESSMENT: 54-year-old gentleman likely resides in [place] Heart Association stage C and [place] Heart Association class 3 heart failure with reduced ejection fraction. Combination of single-vessel coronary artery disease with only 50% block and ejection fraction of only 20% shows that this is a nonischemic cardiomyopathy. 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 His telemetry is suggestive of Mobitz type 2 second-degree heart block, so this needs to be investigated. He could have experienced delirium tremens. He was drinking quite a bit of alcohol consistently for years, then suddenly he stopped. That could explain his severe hypertension that requires nicardipine drip and more recent got fluctuations blood pressure fluctuations. He may be suffering from cardiorenal syndrome from low cardiac output to cause renal dysfunction, but it could be hisunderlying hypertension is not diagnosed. Finally, his electrolytes need to be replaced; he currently has a low potassium. Please see the following for more recommendations. He is not a candidate for advanced heart failure therapy due to multiple reasons. He does not have insurance. All centers will refuse to even consider evaluation without insurance. He does not have good family support. Conversely, with alcohol cardiomyopathy, he does have a reasonable chance to recover provided that he will stop alcohol use and take heart failure medicine consistently. RECOMMENDATIONS: 1. Please consult Electrophysiology. 2. Please add spironolactone 25 mg daily. This will help with potassium and give more diuresis. 3. Increase Lasix to 40 mg p.o. b.i.d. He is still a bit volume overloaded. 4. Please give K-Dur 40 mEq now and then continue with 40 mEq b.i.d. to replace his potassium. We want to make his potassium to be at least 4. 5. Please supplement magnesium to make magnesium 2 because he does have ventricular tachycardia. With the alcohol, one would expect hypomagnesemia. 6. Please check hemoglobin A1c. 7. Please provide atorvastatin 80 mg p.o. at bedtime. He does have coronary artery disease. 8. Assuming this is alcohol cardiomyopathy, with cessation of alcohol and medical treatment, he has a chance to return to normal. However, he does not have insurance; this will be limiting factor. Ideally, Entresto should be started with this hospitalization. Please look into if we can start Entresto and continue to help the patient. Since he currently does not have insurance, this may not be possible, but please look into to see if there are any resources to make this possible. In the meantime, we will use medication that could be continued on outpatient basis. Tomorrow, we will start isosorbide dinitrate and also hydralazine. For now, we will stay with increased diuresis and with potassium supplementation and addition of spironolactone. It has been a pleasure taking care of Mr. Rudy English. If you have any questions, please give me a call. Job ID: [id number] [facility]
[2019-10-30] MEDS: Atorvastatin Calcium 40 MG TAB PO SCH (21:53)
[2019-10-30] MEDS: Lorazepam 1 MG TAB PO SCH (21:54)
--- NOTE | 2019-10-30 23:11 | CON ---
DATE OF CONSULTATION: 10/30/2019 HISTORY OF PRESENT ILLNESS: I am seeing Mr. 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 His problems are: 1. Newly found systolic congestive heart failure, likely nonischemic. a. 2D echo from 10/28/2019 reveals LVEF 25% to 30%, mild MR, AI, mild-to- moderate PI, moderate biatrial enlargement is seen. b. Left heart catheterization on 10/30/2019 reveals LVEF 15% to 20%, single- vessel coronary artery disease at 50% mid LAD lesion. 2. Possible Mobitz type 2 second-degree AV block. a. Asymptomatic recurrence of nonconducted P waves, although without significant QRS prolongation. 3. History of EtOH abuse. ALLERGIES: NONE NOTED. MEDICATIONS: At home included none. SUBJECTIVE: Mr. English came to the ER on the October 27 with increasing lower extremity edema for last 10 days. He also has some orthopnea and PND with very short episodes of atypical left-sided chest pain, which were self-limited. The swelling was bothersome enough his scrotum swelling also included. He was found to be in acute fluid overload with systolic congestive heart failure and severely elevated blood pressures as well in the ER. In [place], IV Lasix was initiated. Nitroglycerin was given. He was transferred to our facility. On telemetry, he did develop occasional nonconducted beats. He has no clear QRS prolongation preceding the nonconducted beats. This occurred twice and was asymptomatic. I was consulted by Dr. Nieves for consideration for further EP workup. Currently, the patient denies PND or orthopnea. His symptoms improved. No chest pain. The rest of review of system otherwise unremarkable. PAST MEDICAL HISTORY: As above. SOCIAL HISTORY: The patient has heavy alcohol intake including 8 to 9 beers a day with additional liquor. Denies tobacco or drug abuse. FAMILY HISTORY: Significant for mild heart problems only unclear. OBJECTIVE DATA: VITAL SIGNS: Blood pressure currently 132/94, heart rate 87, respiratory rate 16. The patient is afebrile. GENERAL: He is alert and oriented man, in no apparent distress. NECK: Supple. Jugular veins are not distended. CHEST: Coarse without crackles. HEART: Sounds are regular to rate and rhythm. No murmur or gallop. ABDOMEN: Benign. Bowel sounds positive. EXTREMITIES: Lower extremities without edema, clubbing, or cyanosis. Pulses are adequate. NEUROLOGIC: The patient is nonfocal. MUSCULOSKELETAL: Without joint swelling or deformity. SKIN: Without rash. DATABASE: Telemetry strips reviewed, revealing sinus rhythm with short 4-beat nonsustained VT run. There is also sinus rhythm seen with nonconducted PAC. No clear prolongation seen prior to the dropped beat. An 8-lead EKG is in the chart revealing sinus rhythm, rate of 86 beats per minute. The QRS is narrow, but 110 msec. T inversions are seen in the inferior leads. QT is 440 msec. LABORATORY DATA: White cell count 4.7, hemoglobin 14.9, platelet count is 345. Sodium 137, potassium 3.4, BUN is 18, and creatinine 1.69. ASSESSMENT AND PLAN: Mr. English is a 54-year-old man with history of alcohol abuse and was presenting with new onset heart failure, found to have significant systolic dysfunction in the setting of hypertension. I was consulted by Dr. Nieves, heart failure specialist. There is a concern regarding occasional dropped beats, which are relatively infrequent so far happened twice during his stay. It is asymptomatic. There is a concern for Mobitz type 2 second-degree AV block possibly present. The QRS is not markedly prolonged. Alternative explanations like His bundle extra beats treating AV block could also be present. I discussed these concerns with the patient about potential progression of this to a complete AV block. At this point, he declines any consideration for pacing or ICD. Risk of syncope or sudden was discussed. He understands for now. He is not interested any intervention. If he changes mind, consideration for EP study could be made to assess conduction system. If indeed pacing indication found, he may benefit from an ICD implant instead of just a routine pacemaker implantation. I discussed these issues with Dr. Nieves. Thank you again for allowing me to participate in the care of this patient. Job ID: [id number] [facility]
[2019-10-31 05:57] LABS: Albumin 2.9 g/dL (3.5-5.0); Anion Gap 12 mmol/L (10-20); BUN (Urea Nitrogen) 17 mg/dL (8.4-25.7); BUN/Creatinine Ratio 10.69; Calc. Creatinine Clearance 57 mL/min (70-130); Calcium 8.4 mg/dL (7.8-10.44); Carbon Dioxide 29 mmol/L (22-29); Cardiac Risk 3.9 (Less than 4.5); Chloride 100 mmol/L (98-107); Cholesterol 146 mg/dl (< 200 Desired); Estimated GFR-MDRD 56; Glucose 98 mg/dL (70-105); HDL Cholesterol 37 mg/dL (>60 Neg Risk); LDL Cholesterol, Calculated 90 mg/dL; Magnesium 2.3 mg/dL (1.6-2.6); Phosphorus 3.7 mg/dL (2.3-4.7); Potassium 3.7 mmol/L (3.5-5.1); Sodium 137 mmol/L (136-145); Triglycerides 94 mg/dL (Less than 150)
[2019-10-31] MEDS ORDERED: Furosemide 40 MG TAB PO SCH (07:30)
[2019-10-31] MEDS: Enoxaparin Sodium 40 MG/0.4 ML SYRINGE SC SCH (09:21)
[2019-10-31] MEDS: Famotidine 20 MG TAB PO SCH ×2 (09:21→22:30)
[2019-10-31] MEDS: Multivitamin W/ Minerals 1 TAB PO SCH (09:21)
[2019-10-31] MEDS: Thiamine 100 MG TAB PO SCH (09:21)
[2019-10-31] MEDS: Potassium Chloride 20 MEQ TAB PO SCH ×2 (09:22→17:53)
[2019-10-31] MEDS: Magnesium Oxide 400 MG TAB PO SCH (09:22)
[2019-10-31] MEDS: Spironolactone 25 MG TAB PO SCH (09:22)
[2019-10-31] MEDS: Folic Acid 1 MG TAB PO SCH (09:22)
[2019-10-31] MEDS: Furosemide 40 MG TAB PO SCH ×2 (09:22→14:38)
[2019-10-31] MEDS: Lorazepam 1 MG TAB PO SCH ×3 (09:22→22:30)
[2019-10-31] MEDS: Carvedilol 6.25 MG TAB PO SCH ×2 (09:22→17:53)
[2019-10-31] MEDS: Aspirin Chewable 81 MG TAB PO SCH (09:22)
--- NOTE | 2019-10-31 11:50 | PRG ---
DATE OF SERVICE: 10/31/2019 This is Advanced Heart Failure Cardiology Consulting Service. SUBJECTIVE: Mr. Rudy English had a good day. He was able to breathe well. He was able to walk some. He did not have any edema. He was noted on the telemetry that he had several incidences on consecutive days of what it looks like Mobitz type II second-degree heart block with fixed [place] interval with drop of one or two beats. EP evaluation was started. The patient has strongly stated he has no interest in a pacemaker or AICD. He does want to take the natural course. Since these incidences are quite infrequent, it could be a His bundle inhibition from a reentry. So, the overall plan at this point about this rhythm is go ahead and proceed with a normal heart failure treatment, titrating up beta-maryuri over the weekend. If he has more of these events, then we will readdress it. If not, we will proceed with increasing dose of carvedilol. REVIEW OF SYSTEMS: GENERAL: There is no fever, chills, or productive cough. HEENT: There is no change in hearing or swallowing. PULMONARY: Please see HPI. CARDIAC: There is no palpitation, syncope, or chest pain. GI: He is eating well. : He is able to urinate. MUSCULOSKELETAL: He has no complaints. INTEGUMENT: No skin breakdown. NEUROLOGIC: There are no focal deficits or weaknesses. MEDICATIONS: His cardiac medications include: 1. Aspirin 81 mg daily. 2. Atorvastatin 80 mg q.h.s. 3. Carvedilol has been increased to 12.5 mg b.i.d. 4. Lasix at 40 mg b.i.d. 5. Magnesium oxide 400 mg daily. 6. Potassium chloride, K-Dur 20 mEq b.i.d. 7. Spironolactone 25 mg daily. PHYSICAL EXAMINATION: TELEMETRY: His telemetry again was reviewed today. He is in sinus rhythm. He did have one brief episode of P wave that did not cause QRS, but there is no more than that. VITAL SIGNS: His current vitals are heart rate 82, blood pressure 128/96. GENERAL: He is alert and conversational, reclining comfortably in bed. HEENT: Shows EOMI, PERRL. Oropharynx is benign with moist mucosa. NECK: JVP is about 10 cm. LUNGS: Clear to auscultation bilaterally. Good air movement. There are no rales. CARDIAC: Shows a regular rate and rhythm, S1, S2, there is 2/6 diastolic murmur at the right sternal border. He also has 3/6 holosystolic murmur at the apex with radiation to left axilla. His PMI is inferiorly and laterally displaced. ABDOMEN: Soft, nontender. Positive bowel sounds. EXTREMITIES: His lower extremity is without edema. There are positive dorsalis pedis pulses. LABORATORY VALUES: Chemistry: Sodium 137, potassium 3.7, BUN is 17, creatinine is 1.59. This is a slight improvement from yesterday. His BNP is 953.8. This is a significant drop from an admission value of 1819. ASSESSMENT: 54-year-old gentleman resides in [place] Heart Association stage C and [place] Heart Association class III heart failure with reduced ejection fraction. 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 He is drinking 8 beers plus 3 whiskeys a day; for 10 years; this amount of heavy alcohol use will cause cardiomyopathy. So consequently, if he stays off alcohol and he continues to take his medications, he has a fair chance for recovery. He is still a bit mildly volume overloaded, so he will need Lasix 40 mg p.o. b.i.d. spironolactone has been started, and he will also need addition of isosorbide dinitrate and hydralazine. This is because he does not have insurance, so the ideal drug is Entresto, but cannot be used. I appreciate Dr. Capone's help in starting this medication already. Mr. English is not a candidate for advanced heart failure therapy. He does not have insurance. There will be no center to even accept him for evaluation. He also does not have a good insight nor good family support, so even though he did have insurance, it will be very difficult. On the other hand, if he stops drinking alcohol and takes his medication, he has a good chance of recovery. So this will be the best course of action. RECOMMENDATIONS: 1. Continue with the cardiac regimen that was recommended yesterday. 2. Add isosorbide dinitrate 10 mg q.12 h. 3. Add hydralazine at 10 mg p.o. q.8 h. 4. Increase carvedilol to 12.5 mg b.i.d. as you are doing. We will monitor over the weekend. 5. Keep him n.p.o. on Saturday night in case he does develop a significant amount of second-degree heart block and begin to have syncopal episodes, if that happens, he will need to study done on Saturday morning. 6. Instructed that the patient will need several days to adjust his medications. We want to be able to adjust those medications to find optimal dosing before we discharge because it will be nearly impossible to follow up at the outpatient at this point. 7. Please strongly ask the patient to not drink alcohol ever again, take his medications consistently at home, and obtain insurance. It has been a pleasure taking care of Mr. Rudy English. If you have any questions, please give me a call. Job ID: [id number] MTDD
--- NOTE | 2019-10-31 13:37 | PDOC.HOSPP ---
- Subjective Encounter Date: 10/31/19 Encounter Time: 13:15 Subjective: Patient seen and examined for new onset CHF. No new CP/SOB. No other complaints. No overnight events - Objective Vital Signs & Weight: Vital Signs (12 hours) Temp Pulse Pulse Resp BP BP BP 10/31/19 12:58 89 130/97 H 10/31/19 11:40 97.8 F 86 16 128/94 H 10/31/19 09:22 128/96 H 10/31/19 07:40 97.6 F 82 16 123/83 10/31/19 04:40 98.7 F 78 18 116/79 Pulse Ox Pulse Ox 10/31/19 12:58 98 10/31/19 11:40 89 L 10/31/19 09:22 10/31/19 07:40 98 10/31/19 04:40 97 Weight Admit Weight 179 lb 14.355 oz Weight 163 lb Most Recent Monitor Data Heart Rate from ECG 92 NIBP 148/113 NIBP BP-Mean 124 Respiration from ECG 23 SpO2 100 I&O: 10/30/19 10/31/19 11/01/19 06:59 06:59 06:59 Intake Total 70 1170 Output Total 900 2250 Balance -830 -1080 Result Diagrams: 10/30/19 04:39 10/31/19 04:54 EKG Reviewed by me: Yes (Tele SR) Hospitalist ROS - Review of Systems Cardiovascular: denies: chest pain, palpitations, orthopnea, paroxysmal noc. dyspnea, edema, light headedness, other Gastrointestinal: denies: nausea, vomiting, abdominal pain, diarrhea, constipation, melena, hematochezia, other - Medication Medications: Active Medications Generic Name Dose Route Start Last Admin Trade Name Freq PRN Reason Stop Dose Admin Acetaminophen 650 mg 10/28/19 03:11 10/28/19 18:38 Tylenol PO 650 mg Q4H PRN Administration Headache/Fever/Mild Pain (1-3) Aspirin 81 mg 10/28/19 09:00 10/31/19 09:22 Aspirin Chewable PO 81 mg DAILY KAROL Administration Atorvastatin Calcium 80 mg 10/30/19 21:00 10/30/19 21:53 Lipitor PO 80 mg HS KAROL Administration Carvedilol 12.5 mg 10/31/19 08:00 10/31/19 09:22 Coreg PO 12.5 mg BID-WM KAROL Administration Enoxaparin Sodium 40 mg 10/30/19 09:00 10/31/19 09:21 Lovenox SC 40 mg 0900 KAROL Administration Famotidine 20 mg 10/28/19 09:00 10/31/19 09:21 Pepcid PO 20 mg BID KAROL Administration Folic Acid 1 mg 10/28/19 09:00 10/31/19 09:22 Folvite PO 1 mg DAILY KAROL Administration Furosemide 40 mg 10/31/19 09:00 10/31/19 09:22 Lasix PO 40 mg 0900,1400 KAROL Administration Iron/Minerals/Multivitamins 1 tab 10/28/19 09:00 10/31/19 09:21 Theragran M PO 1 tab DAILY KAROL Administration Lorazepam 1 mg 10/30/19 21:00 10/31/19 09:22 Ativan PO 1 mg TID KAROL Administration Magnesium Oxide 400 mg 10/29/19 09:00 10/31/19 09:22 Magnesium Oxide PO 400 mg DAILY KAROL Administration Potassium Chloride 20 meq 10/30/19 17:00 10/31/19 09:22 K-Dur PO 20 meq BID-WM KAROL Administration Sodium Chloride 10 ml 10/29/19 09:00 10/30/19 21:54 Flush - Normal Saline IVF 10 ml Q12HR KAROL Administration Spironolactone 25 mg 10/31/19 08:00 10/31/19 09:22 Aldactone PO 25 mg QAM-WM KAROL Administration Thiamine HCl 100 mg 10/29/19 09:00 10/31/19 09:21 Thiamine PO 100 mg DAILY KAROL Administration - Exam General Appearance: NAD Neck: JVD Heart: RRR, no gallops, murmur present (3/6 apex) Respiratory: no wheezes, no ronchi Gastrointestinal: non-tender, non-distended, no guarding, no rigidity Extremities: no cyanosis, no clubbing Neurological: no new deficit Hosp A/P - Plan DVT proph w/SCDs 1. New-onset systolic heart failure exacerbation. 2. Hypertensive crisis, requiring Cardene drip. 3. Chronic alcohol abuse with alcohol withdrawal 4. Coronary artery disease - single vessel. 5. Chronic kidney disease, stage 3. 6. ?2nd deg AV block 7. Hypokalemia. 8. Hypomagnesemia. 9. Elevated troponin secondary to demand ischemia/type 2 MN PLAN: Cont Lasix/Aldactone with fluid rest Cont Coreg - dose increased per EP EP/Cardio/Dr Nieves's input appreciated ACEI/ARB on hold due to renal insuff. BMP in AM
[2019-10-31] MEDS: Isosorbide Dinitrate 5 MG TAB PO SCH ×2 (14:39→22:30)
[2019-10-31] MEDS: hydrALAZINE 10 MG TAB PO SCH ×2 (14:39→22:30)
[2019-10-31] MEDS: Atorvastatin Calcium 40 MG TAB PO SCH (22:31)
[2019-10-31] MEDS: Magnesium Chloride 64 MG TAB PO SCH (22:33)
[2019-11-01 04:53] LABS: Hemoglobin 14.3 g/dL (14.0-18.0); Platelet Count 330 thou/uL (130-400)
[2019-11-01 05:18] LABS: Anion Gap 11 mmol/L (10-20); BUN (Urea Nitrogen) 14 mg/dL (8.4-25.7); BUN/Creatinine Ratio 8.97; Calc. Creatinine Clearance 58 mL/min (70-130); Calcium 8.4 mg/dL (7.8-10.44); Carbon Dioxide 28 mmol/L (22-29); Chloride 102 mmol/L (98-107); Estimated GFR-MDRD 57; Glucose 95 mg/dL (70-105); Magnesium 2.1 mg/dL (1.6-2.6); Phosphorus 3.8 mg/dL (2.3-4.7); Potassium 3.8 mmol/L (3.5-5.1); Sodium 137 mmol/L (136-145)
[2019-11-01] MEDS: Magnesium Chloride 64 MG TAB PO SCH ×2 (09:05→21:27)
[2019-11-01] MEDS: Isosorbide Dinitrate 5 MG TAB PO SCH ×3 (09:05→21:27)
[2019-11-01] MEDS: Magnesium Oxide 400 MG TAB PO SCH (09:06)
[2019-11-01] MEDS: Carvedilol 6.25 MG TAB PO SCH (09:06)
[2019-11-01] MEDS: Furosemide 40 MG TAB PO SCH ×2 (09:06→13:35)
[2019-11-01] MEDS: Potassium Chloride 20 MEQ TAB PO SCH ×2 (09:06→15:48)
[2019-11-01] MEDS: Famotidine 20 MG TAB PO SCH ×2 (09:06→21:21)
[2019-11-01] MEDS: Thiamine 100 MG TAB PO SCH (09:07)
[2019-11-01] MEDS: Multivitamin W/ Minerals 1 TAB PO SCH (09:07)
[2019-11-01] MEDS: Spironolactone 25 MG TAB PO SCH (09:07)
[2019-11-01] MEDS: Folic Acid 1 MG TAB PO SCH (09:07)
[2019-11-01] MEDS: Lorazepam 1 MG TAB PO SCH ×3 (09:07→21:24)
[2019-11-01] MEDS: Enoxaparin Sodium 40 MG/0.4 ML SYRINGE SC SCH (09:08)
[2019-11-01] MEDS: Aspirin Chewable 81 MG TAB PO SCH (09:08)
[2019-11-01] MEDS: hydrALAZINE 10 MG TAB PO SCH ×3 (09:08→21:22)
--- NOTE | 2019-11-01 10:44 | PRG ---
DATE OF SERVICE: 11/01/2019 SUBJECTIVE: Mr. English had an excellent day. He was able to ambulate around the unit without any difficulty. He says he is breathing better and feeling better. He was able to sleep well overnight. REVIEW OF SYSTEMS: GENERAL: There is no fever, chills, or productive cough. HEENT: There is no changing in vision, hearing, or swallowing. PULMONARY: Please see HPI. CARDIOVASCULAR: Please see HPI. GI: He was able to eat well. : He is able to urinate well. MUSCULOSKELETAL: There is no complaint of joint pains or muscle pains. INTEGUMENT: There is no skin breakdown. NEUROLOGIC: There is no focal deficits or weaknesses. MEDICATIONS: His current cardiac medications include; 1. Aspirin at 81 mg daily. 2. Atorvastatin at 80 mg at bedtime. 3. Carvedilol at 12.5 mg twice a day. 4. Lasix at 40 mg twice a day. 5. Isosorbide dinitrate 10 mg three times a day. 6. Magnesium oxide 400 mg daily. 7. Potassium chloride, that is K-Dur at 20 mEq twice a day. 8. Spironolactone at 25 mg daily. PHYSICAL EXAMINATION: TELEMETRY: Reviewed. He is in sinus rhythm. There is no second-degree heart block. He tolerated the up-titration of carvedilol without any difficulties. VITAL SIGNS: His current vitals are heart rate 85, blood pressure 118/83. GENERAL: He is alert, conversational, resting comfortably in bed. HEENT: Show EOMI. Oropharynx is benign with moist mucosa. NECK: His JVP is about 10 cm with a positive hepatojugular reflux. PULMONARY: There is good air movement bilaterally. There are no rales bilateral. It is clear to auscultation. CARDIAC: Regular rate and rhythm with 3/6 holosystolic murmur at the apex with radiation to the axilla and also 2/6 diastolic murmur at the right sternal border. He also has inferior and laterally displaced PMI at about sixth intercostal space and near the midaxillary line. ABDOMEN: Soft, nontender. Positive bowel sounds. EXTREMITIES: His lower extremity is without edema. There are positive dorsalis pedis pulses bilaterally. LABORATORY DATA: Chemistry showed sodium 137, potassium 3.8, BUN 14, creatinine 1.56, and glucose of 95. ASSESSMENT: 54-year-old gentleman, resides in [place] Heart Association stage C and [place] heart Association class III heart failure with reduced ejection fraction. This is due to alcoholic cardiomyopathy. He wa drinking over 8 beers and 3 whiskeys per day and for over 10 years. However, he does have coronary artery disease with 50% stenosis in left anterior descending artery and this blockage is not sufficient to cause cardiomyopathy. Consequently , he does need a high-dose statin to prevent this from progressing any further and perhaps reverse it. He does not show anymore incidence of second-degree heart block, so we can safely titrate up the carvedilol. Carvedilol at 25 mg twice a day has the strongest efficacy and this is the most affordable medication he can go home with, so we will be attempting to titrate this to the most efficacious dose. Please see the following for recommendations. RECOMMENDATIONS: 1. Titrate carvedilol to 25 mg b.i.d. 2. Continue spironolactone 25 mg daily. 3. Continue with isosorbide [id number] mg twice per day and hydralazine 10 mg three times a day. 4. Continue Lasix 40 mg daily for one week. Afterwards, decrease it down to 40 mg daily. 5. Please help with the patient into patient assistance program and he should be followed by the Heart Failure Clinic at least by Telemedicine and he will need labs weekly for the first months. 6. Please help the patient obtain insurance. 7. If the patient tolerates up-titration of carvedilol, he is safe to go home tomorrow. 8. It is ideal to have a LifeVest, but I do not think this is possible due to his lack of insurance. Since this is alcoholic cardiomyopathy, the stopping of alcohol and the medical treatment can reverse this. 9. I strongly urged the patient to do these 3 items;. a. Do not ever drink alcohol again. b. Take medicines. c. Obtain insurance that can afford better heart failure treatment. Once he obtains insurance, Entresto can be initiated in place of hydralazine and isosorbide dinitrate. It has been a pleasure taking care of Mr. English. If you have any questions, please give me a call. Job ID: [id number] [facility]
--- NOTE | 2019-11-01 14:45 | PDOC.HOSPP ---
- Subjective Encounter Date: 11/01/19 Encounter Time: 14:00 Subjective: Patient seen and examined for CHF. No new SOB/palpitations. No new complaints. No overnight events - Objective Vital Signs & Weight: Vital Signs (12 hours) Temp Pulse Pulse Pulse Resp BP BP 11/01/19 13:03 94 92 136/103 H 11/01/19 12:00 97.9 F 86 18 11/01/19 09:08 85 118/83 11/01/19 09:06 118/83 11/01/19 08:00 11/01/19 07:39 118/83 11/01/19 07:37 98.3 F 86 18 11/01/19 02:59 97.8 F 82 17 BP BP Pulse Ox Pulse Ox Pulse Ox 11/01/19 13:03 125/93 H 96 96 11/01/19 12:00 123/97 H 98 11/01/19 09:08 11/01/19 09:06 11/01/19 08:00 99 11/01/19 07:39 11/01/19 07:37 118/83 99 11/01/19 02:59 123/79 99 Weight Admit Weight 179 lb 14.355 oz Weight 161 lb 14.4 oz Most Recent Monitor Data Heart Rate from ECG 92 NIBP 148/113 NIBP BP-Mean 124 Respiration from ECG 23 SpO2 100 I&O: 10/31/19 11/01/19 11/02/19 06:59 06:59 06:59 Intake Total 1170 1680 Output Total 2250 3085 Balance -1205 -9338 Result Diagrams: 11/01/19 04:31 11/01/19 04:31 EKG Reviewed by me: Yes (Tele SR) Hospitalist ROS - Review of Systems Respiratory: denies: cough, dry, shortness of breath, hemoptysis, SOB with excertion, pleuritic pain, sputum, wheezing, other Cardiovascular: denies: chest pain, palpitations, orthopnea, paroxysmal noc. dyspnea, edema, light headedness, other - Medication Medications: Active Medications Generic Name Dose Route Start Last Admin Trade Name Freq PRN Reason Stop Dose Admin Acetaminophen 650 mg 10/28/19 03:11 10/28/19 18:38 Tylenol PO 650 mg Q4H PRN Administration Headache/Fever/Mild Pain (1-3) Aspirin 81 mg 10/28/19 09:00 11/01/19 09:08 Aspirin Chewable PO 81 mg DAILY KAROL Administration Atorvastatin Calcium 80 mg 10/30/19 21:00 10/31/19 22:31 Lipitor PO 80 mg HS KAROL Administration Enoxaparin Sodium 40 mg 10/30/19 09:00 11/01/19 09:08 Lovenox SC 40 mg 0900 KAROL Administration Famotidine 20 mg 10/28/19 09:00 11/01/19 09:06 Pepcid PO 20 mg BID KAROL Administration Folic Acid 1 mg 10/28/19 09:00 11/01/19 09:07 Folvite PO 1 mg DAILY KAROL Administration Furosemide 40 mg 10/31/19 09:00 11/01/19 13:35 Lasix PO 40 mg 0900,1400 KAROL Administration Hydralazine HCl 10 mg 10/31/19 15:00 11/01/19 09:08 Apresoline PO 10 mg TID KAROL Administration Iron/Minerals/Multivitamins 1 tab 10/28/19 09:00 11/01/19 09:07 Theragran M PO 1 tab DAILY [facility] Administration Isosorbide Dinitrate 10 mg 10/31/19 15:00 11/01/19 09:05 Isordil PO 10 mg TID KAROL Administration Lorazepam 1 mg 10/30/19 21:00 11/01/19 09:07 Ativan PO 1 mg TID KAROL Administration Magnesium Chloride 64 mg 10/31/19 21:00 11/01/19 09:05 Slow-Mag PO 64 mg BID KAROL Administration Magnesium Oxide 400 mg 10/29/19 09:00 11/01/19 09:06 Magnesium Oxide PO 400 mg DAILY KAROL Administration Potassium Chloride 20 meq 10/30/19 17:00 11/01/19 09:06 K-Dur PO 20 meq BID-WM KAROL Administration Sodium Chloride 10 ml 10/29/19 09:00 11/01/19 09:05 Flush - Normal Saline IVF 10 ml Q12HR KAROL Administration Spironolactone 25 mg 10/31/19 08:00 11/01/19 09:07 Aldactone PO 25 mg QAM-WM KAROL Administration Thiamine HCl 100 mg 10/29/19 09:00 11/01/19 09:07 Thiamine PO 100 mg DAILY KAROL Administration - Exam General Appearance: NAD Heart: RRR, no gallops Respiratory: no wheezes, rales (at bases), rhonchi (at bases) Gastrointestinal: non-tender, non-distended, normal bowel sounds Extremities: no cyanosis Hosp A/P - Plan DVT proph w/SCDs 1. New-onset systolic heart failure exacerbation. 2. Hypertensive crisis, requiring Cardene drip. 3. Chronic alcohol abuse with alcohol withdrawal 4. Coronary artery disease - single vessel. 5. Chronic kidney disease, stage 3. 6. ?2nd deg AV block 7. Hypokalemia. 8. Hypomagnesemia. 9. Elevated troponin secondary to demand ischemia/type 2 AR PLAN: Tolerating Coreg - dose increased to 25 mg BID Cont Lasix - reduce to daily next week per Dr Nieves Cont Potassium Cont Aldactone with fluid rest ACEI/ARB on hold due to renal insuff. NPO past MN for EP eval BMP in AM
[2019-11-01] MEDS: Atorvastatin Calcium 40 MG TAB PO SCH (21:21)
[2019-11-01] MEDS: Carvedilol 25 MG TAB PO SCH (21:22)
[2019-11-02 05:34] LABS: Anion Gap 10 mmol/L (10-20); BUN (Urea Nitrogen) 18 mg/dL (8.4-25.7); Calc. Creatinine Clearance 51 mL/min (70-130); Calcium 8.6 mg/dL (7.8-10.44); Carbon Dioxide 27 mmol/L (22-29); Chloride 103 mmol/L (98-107); Estimated GFR-MDRD 50; Glucose 104 mg/dL (70-105); Potassium 3.9 mmol/L (3.5-5.1); Sodium 136 mmol/L (136-145)
[2019-11-02 07:41] VITALS: BMI 18.6
--- NOTE | 2019-11-02 07:50 | PRG ---
DATE OF SERVICE: 11/02/2019 This is Advanced Heart Failure Consulting Service SUBJECTIVE: In general, Mr. English had an excellent day. He is able to walk the entire unit as much as he wants to and also roam around the hospital. He did not have any symptoms. He is not short of breath. He felt like he has returned to normal. He was able to sleep flat without PND. He did not notice any edema. He also ate well. REVIEW OF SYSTEMS: GENERAL: There is no fever, chills, or productive cough. HEENT: There is no change in vision, hearing, or swallowing. PULMONARY: See HPI. CARDIOVASCULAR: There is no chest pain, palpitation, or syncope. GI: He is eating well. : He is urinating well. MUSCULOSKELETAL: There is no complaint of joint or muscle pains. INTEGUMENT: There is no skin breakdown. NEUROLOGIC: There are no new focal deficits or weaknesses. MEDICATIONS: His current cardiac medications consist of: 1. Aspirin 81 mg daily. 2. Atorvastatin 80 mg at bedtime. 3. Carvedilol 25 mg b.i.d. 4. Lasix 40 mg b.i.d. 5. Hydralazine 10 mg t.i.d. 6. Isosorbide dinitrate 10 mg t.i.d., this would increase. 7. Magnesium oxide 400 mg daily. 8. Potassium chloride, K-Dur, 20 mEq daily. 9. Spironolactone 25 mg daily. Telemetry was reviewed. There are no more instances of second-degree heart block. He has a sinus rhythm with average rate about 75. PHYSICAL EXAMINATION: VITAL SIGNS: Heart rate 76, blood pressure 103/62. GENERAL: He is alert and conversational, reclining comfortably in bed. He is able to maintain long sentence without any difficulties or shortness of breath. HEENT: EOMI. Oropharynx is benign with moist mucosa. NECK: His JVP is still about 10 cm with a positive hepatojugular reflux. PULMONARY: There is excellent air movement. There are no rales. Clear to auscultation bilaterally. CARDIAC: There is 2/6 diastolic murmur at right sternal border. There is also a 3/6 holosystolic murmur at the apex with radiation to the left axilla. PMI is inferolaterally displaced. He does have normal S1 and S2. He does have regular rhythm also. ABDOMEN: Soft and nontender. Positive bowel sounds. EXTREMITIES: Lower extremities are without edema. Positive dorsalis pedis pulses bilaterally. They are warm and well perfused. LABORATORY VALUES: Show sodium 136, potassium 3.9, bicarb 27, BUN 18, and creatinine 1.75. ASSESSMENT: A 54-year-old gentleman who resides in [place] Heart Association stage C and [place] heart failure class III heart failure with reduced ejection fraction. 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 He has both systolic and diastolic dysfunctions. He also has coronary artery disease as seen by 50% blockage in the left anterior descending artery. However, this is not the cause of his cardiomyopathy because it is not significant to do this. His diuresis needs to be slowed down today because his creatinine bumped a little bit. Other than that, the patient is ready to go home today. Please see my following recommendations. RECOMMENDATIONS: 1. Decrease Lasix down to 40 mg daily. 2. Continue his current cardiac regimen. This includes: a. Aspirin daily. b. Carvedilol 25 mg b.i.d. c. Isosorbide dinitrate 10 mg t.i.d. d. Also hydralazine 10 mg t.i.d. e. Atorvastatin 80 mg at bedtime. f. Spironolactone 25 mg daily. 3. Strongly advised the patient not to drink alcohol, take medications, limit fluid intake to less than 2 L per day, and get insurance. 4. The patient is stable, has reached a good set of outpatient regimen, so he can be discharged today. It has been a pleasure taking care of Mr. English. Please make sure that he is being followed up in Heart Failure Clinic. If you have any questions, please give me a call. Job ID: [id number]
[2019-11-02] MEDS ORDERED: Furosemide 40 MG TAB PO SCH (09:00)
[2019-11-02] MEDS: Spironolactone 25 MG TAB PO SCH (09:38)
[2019-11-02] MEDS: Magnesium Chloride 64 MG TAB PO SCH (09:38)
[2019-11-02] MEDS: Aspirin Chewable 81 MG TAB PO SCH (09:38)
[2019-11-02] MEDS: Carvedilol 25 MG TAB PO SCH (09:38)
[2019-11-02] MEDS: Multivitamin W/ Minerals 1 TAB PO SCH (09:38)
[2019-11-02] MEDS: Famotidine 20 MG TAB PO SCH (09:38)
[2019-11-02] MEDS: Isosorbide Dinitrate 5 MG TAB PO SCH ×2 (09:38→15:46)
[2019-11-02] MEDS: Folic Acid 1 MG TAB PO SCH (09:38)
[2019-11-02] MEDS: Potassium Chloride 20 MEQ TAB PO SCH (09:39)
[2019-11-02] MEDS: hydrALAZINE 10 MG TAB PO SCH ×2 (09:39→15:46)
[2019-11-02] MEDS: Thiamine 100 MG TAB PO SCH (09:39)
[2019-11-02] MEDS: Magnesium Oxide 400 MG TAB PO SCH (09:39)
[2019-11-02] MEDS: Lorazepam 1 MG TAB PO SCH ×2 (09:40→15:45)
[2019-11-02 12:08] VITALS: TEMP 97.3
--- NOTE | 2019-11-02 12:08 | DIS ---
DATE OF ADMISSION: 10/28/2019 DATE OF DISCHARGE: 11/02/2019 DISCHARGE DISPOSITION: Home. FOLLOWUP: 1. Follow up with primary care physician at [facility] in one week. 2. Follow up with Cardiology, Dr. Nolan and Heart Failure Clinic as scheduled. 3. The patient was extensively counseled on 2 L per day fluid restriction and maximum 2 g sodium in 24 hours. ALLERGIES: NO KNOWN DRUG ALLERGIES. THE PATIENT WAS SEEN AND EXAMINED ON THE DAY OF DISCHARGE. DENIES ANY NEW COMPLAINTS. NO CHEST PAIN, SHORTNESS OF BREATH, OR PALPITATIONS REPORTED. DISCHARGE MEDICATIONS: 1. Aspirin 81 mg daily. 2. Lipitor 80 mg at bedtime. 3. Carvedilol 25 mg b.i.d. 4. Lasix 40 mg daily. 5. Hydralazine 10 mg 3 times a day. 6. Isosorbide dinitrate 10 mg 3 times a day. 7. Aldactone 25 mg daily. 8. Folic acid 1 mg daily. 9. Thiamine 100 mg daily. 10. Multivitamin 1 tablet daily. 11. Sublingual nitroglycerin as needed. 12. Slow-Mag 64 mg b.i.d. The patient was seen and examined on the day of discharge. Denies any new complaints. No chest pain, shortness of breath, or palpitations. BRIEF HOSPITAL COURSE: The patient is a 54-year-old male with chronic alcohol abuse, presented to the hospital on October 28, 2019 with bilateral lower extremity swelling along with shortness of breath. His workup was consistent with hypertensive crisis along with congestive heart failure exacerbation. He was started on diuretics along with Cardene drip. Later on Cardene drip was discontinued. His echocardiogram showed ejection fraction 25% to 30% with diastolic dysfunction. The patient was evaluated by Cardiology as well as Advanced Heart Failure sap basis consultant, Dr. Nieves. His medications have been optimized. Cardiac catheterization was performed that showed mid LAD 50% lesion with ejection fraction of 15% to 20%. He has been extensively counseled on congestive heart failure. He is saturating 96% on room air. His weight on the day of discharge is 161 pounds from 179 pounds on admission. FINAL DIAGNOSES: 1. Acute systolic/diastolic heart failure exacerbation, new onset, probably secondary to alcohol-induced cardiomyopathy. 2. Hypertensive crisis, requiring Cardene drip. 3. Chronic alcohol abuse. 4. Mild alcohol withdrawal. 5. Coronary artery disease, single-vessel. 6. Chronic kidney disease, stage 3. 7. Hypokalemia, replaced. 8. Hypomagnesemia, replaced. 9. Type 2 myocardial infarction on admission. TIME SPENT: Time coordinating the discharge of this patient was 37 minutes. He was extensively counseled on lifestyle modification including alcohol cessation. He was provided with information on outpatient alcohol rehabilitation resources. Job ID: [id number]
--- NOTE | 2019-11-02 13:24 | PDOC.EP ---
- Subjective Date: 11/02/19 Time: 13:23 Interval History: follow up for evaluation of arrhythmia and possible conduction disease. Mr English feels well and is eager to go home. He voices no concerns or complaints - Review of Systems Constitutional: denies: chills, fever, malaise, sweats, weakness, other Respiratory: denies: cough, dry, hemoptysis, pleuritic pain, shortness of breath , SOB with excertion, sputum, wheezing, other Cardiology: denies: chest pain, edema, heart racing, light headedness, palpitations, passing out, swelling Gastrointestinal: denies: abdominal pain, diarrhea, nausea, vomitting Musculoskeletal: denies: unstable gait, falls, neck pain - Objective Allergies/Adverse Reactions: Allergies Allergy/AdvReac Type Severity Reaction Status Date / Time No Known Allergies Allergy Verified 10/28/19 03:03 Current Medications Acetaminophen (Tylenol) 650 mg PO Q4H PRN PRN Reason: Headache/Fever/Mild Pain (1-3) Last Admin: 10/28/19 18:38 Dose: 650 mg Acetaminophen (Tylenol) 650 mg AR Q4H PRN PRN Reason: Headache/Fever/Mild Pain (1-3) Acetaminophen/Codeine Phosphate (Tylenol #3) 1 tab PO Q4H PRN PRN Reason: Mild Pain (1-3) Aspirin (Aspirin Chewable) 81 mg PO DAILY [facility] Last Admin: 11/02/19 09:38 Dose: 81 mg Atorvastatin Calcium (Lipitor) 80 mg PO HS [facility] Last Admin: 11/01/19 21:21 Dose: 80 mg Carvedilol (Coreg) 25 mg PO BID [facility] Last Admin: 11/02/19 09:38 Dose: 25 mg Famotidine (Pepcid) 20 mg PO BID [facility] Last Admin: 11/02/19 09:38 Dose: 20 mg Folic Acid (Folvite) 1 mg PO DAILY [facility] Last Admin: 11/02/19 09:38 Dose: 1 mg Furosemide (Lasix) 40 mg PO DAILY [facility] Last Admin: 11/02/19 09:39 Dose: 40 mg Guaifenesin/Dextromethorphan (Robitussin Dm) 15 ml PO Q4H PRN PRN Reason: Cough Hydralazine HCl (Apresoline) 10 mg PO TID [facility] Last Admin: 11/02/19 09:39 Dose: 10 mg Iron/Minerals/Multivitamins (Theragran M) 1 tab PO DAILY [facility] Last Admin: 11/02/19 09:38 Dose: 1 tab Isosorbide Dinitrate (Isordil) 10 mg PO TID [facility] Last Admin: 11/02/19 09:38 Dose: 10 mg Lorazepam (Ativan) 1 mg PO TID [facility] Last Admin: 11/02/19 09:40 Dose: 1 mg Lorazepam (Ativan) 1 mg PO Q4H PRN PRN Reason: ASE >=8 Magnesium Chloride (Slow-Mag) 64 mg PO BID [facility] Last Admin: 11/02/19 09:38 Dose: 64 mg Magnesium Oxide (Magnesium Oxide) 400 mg PO DAILY [facility] Last Admin: 11/02/19 09:39 Dose: 400 mg Nitroglycerin (Nitrostat) 0.4 mg SL Q5MIN PRN PRN Reason: Chest Pain Ondansetron HCl (Zofran Odt) 4 mg PO Q6H PRN PRN Reason: Nausea/Vomiting Ondansetron HCl (Zofran) 4 mg IVP Q6H PRN PRN Reason: Nausea/Vomiting Potassium Chloride (K-Dur) 20 meq PO BID[facility] Last Admin: 11/02/19 09:39 Dose: 20 meq Senna/Docusate Sodium (Senokot S) 2 tab PO BID PRN PRN Reason: Constipation Sodium Chloride (Flush - Normal Saline) 10 ml IVF Q12HR [facility] Last Admin: 11/02/19 09:40 Dose: 10 ml Sodium Chloride (Flush - Normal Saline) 10 ml IVF PRN PRN PRN Reason: Saline Flush Spironolactone (Aldactone) 25 mg PO QAM[facility] Last Admin: 11/02/19 09:38 Dose: 25 mg Thiamine HCl (Thiamine) 100 mg PO DAILY [facility] Last Admin: 11/02/19 09:39 Dose: 100 mg Vital Signs & Weight: Vital Signs Temp Pulse Resp BP BP BP Pulse Ox 11/02/19 12:07 97.3 F L 84 16 136/96 H 100 11/02/19 09:39 91 154/113 H 11/02/19 07:50 97.2 F L 84 16 132/96 H 96 11/02/19 03:32 97.8 F 76 17 103/62 98 Admit Weight 179 lb 14.355 oz Weight 161 lb 9.6 oz I/O: I/O 11/01/19 11/02/19 11/03/19 06:59 06:59 06:59 Intake Total 1680 1540 Output Total 3083 2075 Balance -4345 535 - Physical Exam General: alert & oriented x3, appears well, no apparent distress, speech clear, affect appropriate HEENT: mucus membranes moist, normocephaly, EOMI. negative: oral lesions Neck: supple neck, no JVD/HJR, no lymphadenopathy Cardiology: regular rate and rhythm, no murmur, PMI nondisplaced Lungs: clear to auscultation, no wheeze, rales, rhonchi Neurology: cranial nerve 2-12 intact, sensory function intact, no lateralizing findings - Labs Result Diagrams: 11/01/19 04:31 11/02/19 04:32 - EKG Interpretation EKG Method: Telemetry EKG shows: Sinus rhythm - Assessment/Plan Assessment/Plan: 1. Newly found systolic congestive heart failure, likely nonischemic. a. 2D echo from 10/28/2019 reveals LVEF 25% to 30%, mild MR, AI, [id number] PI, moderate biatrial enlargement is seen. b. Left heart catheterization on 10/30/2019 reveals LVEF 15% to 20%, single- vessel coronary artery disease at 50% mid LAD lesion. 2. Isolated recurrence of dropped ventricular beats. Possible Mobitz type 2 second-degree AV block a. Asymptomatic b. without significant baseline QRS prolongation. 3. History of EtOH abuse. 4. NSVT -4 beat run on 10/28 Rhythm has been stable over weekend and no furhter arrhythmia events are seen. Hence the QRS is not markedly prolonged, alternative explanations of the above noted nonconucted atrial complexes like His bundle extra beats transiently blocking AV conduction could also be present. At this point, he declines any consideration for pacing or ICD. Risk of syncope or sudden was discussed. If he changes mind, consideration for EP study could be made to assess conduction system. If indeed pacing indication found, he may benefit from an ICD implant instead of just a routine pacemaker implantation. He will require GDMT for his newly diagnosed heart failure which will be addressed by his cardiology team. If EF remains </=35% after 3 months of optimal GDMT a primary prevention ICD could be considered. Likely a dual chamber system given the concern for AV block EP signing off
--- NOTE | 2019-11-02 14:06 | PDOC.CPN ---
- Subjective Date: 11/02/19 Time: 14:13 Interval history: The pt seen and examined. No overnight events. No cardiac complaints. - Objective Allergies/Adverse Reactions: Allergies Allergy/AdvReac Type Severity Reaction Status Date / Time No Known Allergies Allergy Verified 10/28/19 03:03 Visit Medications: Current Medications Acetaminophen (Tylenol) 650 mg PO Q4H PRN PRN Reason: Headache/Fever/Mild Pain (1-3) Last Admin: 10/28/19 18:38 Dose: 650 mg Acetaminophen (Tylenol) 650 mg NV Q4H PRN PRN Reason: Headache/Fever/Mild Pain (1-3) Acetaminophen/Codeine Phosphate (Tylenol #3) 1 tab PO Q4H PRN PRN Reason: Mild Pain (1-3) Aspirin (Aspirin Chewable) 81 mg PO DAILY [facility] Last Admin: 11/02/19 09:38 Dose: 81 mg Atorvastatin Calcium (Lipitor) 80 mg PO HS [facility] Last Admin: 11/01/19 21:21 Dose: 80 mg Carvedilol (Coreg) 25 mg PO BID [facility] Last Admin: 11/02/19 09:38 Dose: 25 mg Famotidine (Pepcid) 20 mg PO BID [facility] Last Admin: 11/02/19 09:38 Dose: 20 mg Folic Acid (Folvite) 1 mg PO DAILY [facility] Last Admin: 11/02/19 09:38 Dose: 1 mg Furosemide (Lasix) 40 mg PO DAILY [facility] Last Admin: 11/02/19 09:39 Dose: 40 mg Guaifenesin/Dextromethorphan (Robitussin Dm) 15 ml PO Q4H PRN PRN Reason: Cough Hydralazine HCl (Apresoline) 10 mg PO TID [facility] Last Admin: 11/02/19 09:39 Dose: 10 mg Iron/Minerals/Multivitamins (Theragran M) 1 tab PO DAILY [facility] Last Admin: 11/02/19 09:38 Dose: 1 tab Isosorbide Dinitrate (Isordil) 10 mg PO TID [facility] Last Admin: 11/02/19 09:38 Dose: 10 mg Lorazepam (Ativan) 1 mg PO TID [facility] Last Admin: 11/02/19 09:40 Dose: 1 mg Lorazepam (Ativan) 1 mg PO Q4H PRN PRN Reason: ASE >=8 Magnesium Chloride (Slow-Mag) 64 mg PO BID [facility] Last Admin: 11/02/19 09:38 Dose: 64 mg Magnesium Oxide (Magnesium Oxide) 400 mg PO DAILY [facility] Last Admin: 11/02/19 09:39 Dose: 400 mg Nitroglycerin (Nitrostat) 0.4 mg SL Q5MIN PRN PRN Reason: Chest Pain Ondansetron HCl (Zofran Odt) 4 mg PO Q6H PRN PRN Reason: Nausea/Vomiting Ondansetron HCl (Zofran) 4 mg IVP Q6H PRN PRN Reason: Nausea/Vomiting [facility] Admin: 11/02/19 09:39 Dose: 20 meq Senna/Docusate Sodium (Senokot S) 2 tab PO BID PRN PRN Reason: Constipation Sodium Chloride (Flush - Normal Saline) 10 ml IVF Q12HR [facility] Last Admin: 11/02/19 09:40 Dose: 10 ml Sodium Chloride (Flush - Normal Saline) 10 ml IVF PRN PRN PRN Reason: Saline Flush Spironolactone (Aldactone) 25 mg PO QAM[facility] Last Admin: 11/02/19 09:38 Dose: 25 mg Thiamine HCl (Thiamine) 100 mg PO DAILY [facility] Last Admin: 11/02/19 09:39 Dose: 100 mg Vital Signs & Weight: Vital Signs Temp Pulse Resp BP BP BP Pulse Ox 11/02/19 12:07 97.3 F L 84 16 136/96 H 100 11/02/19 09:39 91 154/113 H 11/02/19 07:50 97.2 F L 84 16 132/96 H 96 11/02/19 03:32 97.8 F 76 17 103/62 98 Admit Weight 179 lb 14.355 oz Weight 161 lb 9.6 oz - Quality Measures CV meds: Beta Analy: Yes, LESVIA/ARB: No (renal insuff.), ASA: Yes - Physical Exam General: alert & oriented x3 HEENT: mucus membranes moist Neck: supple neck Cardiac: regular rate and rhythm, S1/S2 Lungs: clear to auscultation Neuro: cranial nerve 2-12 intact Abdomen: unremarkable Extremities: no edema - Labs Result Diagrams: 11/01/19 04:31 11/02/19 04:32 Troponin/CKMB Troponin I 0.062 ng/mL (< 0.028) H 10/28/19 04:41 - Telemetry Sinus rhythms and dysrhythmias: sinus rhythm - Assessment/Plan Assessment/Plan: 1. 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 HTN urgency - stable with current med 3. CAD with s/p LHC on 10/30/2019 with LVEF 15% to 20%, and 50% stenosis in mid LAD - stable; on Coreg, Lipitor and ASA 4. ETOH abuse - strongly recommend ETOH cessation MAR reviewed * Echo on 10/28/2019 with EF 25-30%, grade III dd, mild ERA, mod LAE, mild-mod MR, mild AR and TR, and mild-mod NV * s/p LHC on 10/30/2019 with LVEF 15% to 20%, and 50% stenosis in mid LAD * From Cardiac standpoint, the pt is stable to d/c home. LifeVest will be delivered to his home tomorrow. * The pt will f/u with Dr Nolan' office in 2 wks and Echo in 3 months. If EF remains </=35% after 3 months of optimal GDMT a primary prevention ICD could be considered pt. seen and eval. by me,. I agree with the A/P by the [employer]. 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 He may improve over time with medical management. Chest clear. RRR. A life-vest has been arranged to be put on at his home.
[2019-11-02 15:48] VITALS: BP 146/119
== END 2019-11-02 16:18 | disposition home or self-care (01) | DRG 280 ==
LOC: ERS 00:05 → CCU 01:48 → 2NO 10:40
PROVIDERS: ADMIT Emergency Medicine; ATTEND Internal Medicine
PROC: 4A023N7 Measurement of Cardiac Sampling and Pressure, Left Heart, Percutaneous Approach (ICD-10-PCS; principal; 2019-10-30)
PROC: B2151ZZ Fluoroscopy of Left Heart using Low Osmolar Contrast (ICD-10-PCS; 2019-10-30)
PROC: B2111ZZ Fluoroscopy of Multiple Coronary Arteries using Low Osmolar Contrast (ICD-10-PCS; 2019-10-30)
DX: I16.1 Hypertensive emergency (principal); I50.43 Acute on chronic combined systolic (congestive) and diastolic (congestive) heart failure; I21.A1 Myocardial infarction type 2; I42.6 Alcoholic cardiomyopathy; F10.239 Alcohol dependence with withdrawal, unspecified; I47.2 Ventricular tachycardia; I25.10 Atherosclerotic heart disease of native coronary artery without angina pectoris; N18.3 Chronic kidney disease, stage 3 (moderate); E83.42 Hypomagnesemia; D75.1 Secondary polycythemia; E87.6 Hypokalemia; E78.5 Hyperlipidemia, unspecified; I44.1 Atrioventricular block, second degree
CPT/HCPCS: 36415; 80048; 80061; 80069; 83735; 83880; 84484; 85014; 85018; 85025; 85049; 93306; 93458; 93798; 93970; 96365; 96375; 99152; C1769; J0360; J1644; J1650; J1940; J2250; J3411; J3475; J3490; Q9967

== ENCOUNTER 2021-05-11 14:37 | Inpatient (IN) | payer OTHER, SELFPAY ==
[2021-05-11 17:37] LABS: Troponin I 0.026 ng/mL (< 0.028)
[2021-05-11] MEDS ORDERED: Ondansetron PF 4 MG/2 ML Vial IVP PRN (17:55)
[2021-05-11] MEDS ORDERED: Bisacodyl 5 MG TAB PO PRN (17:55)
[2021-05-11] MEDS ORDERED: Ondansetron ODT 4 MG TAB PO PRN (17:55)
[2021-05-11] MEDS ORDERED: Acetaminophen 650 MG Suppository PR PRN (17:55)
[2021-05-11] MEDS ORDERED: Senokot S 8.6-50 MG TAB PO PRN (17:55)
[2021-05-11] MEDS ORDERED: Acetaminophen 325 MG TAB PO PRN (17:55)
[2021-05-11] MEDS ORDERED: hydrALAZINE 20 MG/ML VIAL SLOW IVP PRN (17:56)
[2021-05-11] MEDS ORDERED: Cepastat Lozenges 1 LOZ PO PRN (17:56)
[2021-05-11] MEDS ORDERED: Benzonatate 100 MG CAP PO PRN (17:56)
[2021-05-11] MEDS ORDERED: Labetalol HCl 100 MG/20 ML VIAL SLOW IVP PRN (17:56)
[2021-05-11] MEDS ORDERED: diphenhydrAMINE 25 MG CAP PO PRN (17:56)
[2021-05-11] MEDS ORDERED: Furosemide 100 MG/10 ML VIAL SLOW IVP SCH ×2 (18:00→21:00)
[2021-05-11] MEDS ORDERED: Losartan 25 MG TAB PO SCH (18:15)
[2021-05-11] MEDS ORDERED: Spironolactone 25 MG TAB PO SCH (18:30)
[2021-05-11 19:18] LABS: Bacteria/HPF None Seen HPF (None Seen); Bilirubin Negative (Negative); Blood, Urine Negative (Negative); Clarity Clear (Clear); Glucose, Urine (Dipstick) Normal (Negative); Ketone, Urine Negative (Negative); Leukocyte Negative Leu/uL (Negative); Nitrite Negative (Negative); Protein, Urine (Dipstick) 10 mg/dL (Neg-Trace); RBC/HPF 0-3 HPF (0-3); Squamous Epithelial 0-3 HPF (0-3); Urobilinogen Normal mg/dL (Less than 2); WBC/HPF 0-3 HPF (0-3); pH, Urine 6.5 (5.0-9.0)
[2021-05-11 19:48] LABS: Sperm/HPF 3+ HPF (None Seen)
[2021-05-11] MEDS ORDERED: Heparin 10,000 UNITS/ 10 ML VIAL SLOW IVP SCH (20:00)
[2021-05-11 20:25] LABS: Hemoglobin 15.9 g/dL (14.0-18.0); Platelet Count 293 thou/uL (130-400)
[2021-05-11] MEDS: Atorvastatin Calcium 40 MG TAB PO SCH (21:03)
[2021-05-11] MEDS: Heparin 25,000 units/D5W 500 ML IVPB SCH (21:03)
[2021-05-11 22:40] LABS: SARS-CoV-2 PCR by NAA Not Detected (NotDetected)
[2021-05-12 01:26] LABS: Troponin I 0.032 ng/mL (< 0.028)
[2021-05-12 02:00] LABS: PTT 181.8 sec (22.9-36.1)
[2021-05-12 04:59] LABS: #Basophils 0.1 thou/uL (0.0-0.2); #Eosinphils 0.2 thou/uL (0.0-0.7); #Lymphocytes 1.8 thou/uL (1.20-3.40); #Monocytes 0.7 thou/uL (0.11-0.59); #Neutrophils 2.6 thou/uL (1.40-6.50); %Basophils 1.3 % (0.0-1.0); %Monocytes 13.7 % (0.0-10.0); Hemoglobin 14.3 g/dL (14.0-18.0); Mean Corpuscular HGB CONC 31.6 g/dL (32.0-36.0); Mean Corpuscular Hemoglobin 29.1 pg (27.0-31.0); Mean Platelet Volume 7.9 fL (7.4-10.4); Platelet Count 271 thou/uL (130-400); Red Blood Cell (RBC) Count 4.92 mill/uL (4.70-6.10); White Blood Cell (WBC) Count 5.4 thou/uL (4.8-10.8)
[2021-05-12 05:08] LABS: INR-International Normal Ratio 1.2; Prothrombin Time 15.5 sec (12.0-14.7)
[2021-05-12 05:09] LABS: PTT 61.6 sec (22.9-36.1)
[2021-05-12] MEDS: Furosemide 100 MG/10 ML VIAL SLOW IVP SCH ×2 (05:18→15:26)
[2021-05-12 05:24] LABS: ALT (SGPT) 19 U/L (8-55); AST (SGOT) 20 U/L (5-34); Albumin 3.3 g/dL (3.5-5.0); Alkaline Phosphatase 117 U/L (40-110); Anion Gap 16 mmol/L (10-20); BUN (Urea Nitrogen) 22 mg/dL (8.4-25.7); Bilirubin, Total 1.1 mg/dL (0.2-1.2); Calc. Creatinine Clearance 61 mL/min (70-130); Carbon Dioxide 26 mmol/L (22-29); Chloride 102 mmol/L (98-107); Globulin 2.8 g/dL (2.4-3.5); Glucose 99 mg/dL (70-105); Potassium 3.7 mmol/L (3.5-5.1); Protein, Total 6.1 g/dL (6.0-8.3); Sodium 140 mmol/L (136-145)
[2021-05-12 05:32] LABS: Phosphorus 4.1 mg/dL (2.3-4.7)
[2021-05-12] MEDS: Spironolactone 25 MG TAB PO SCH (08:33)
[2021-05-12] MEDS: Carvedilol 6.25 MG TAB PO SCH ×2 (08:33→17:41)
[2021-05-12] MEDS: Aspirin Chewable 81 MG TAB PO SCH (08:33)
[2021-05-12] MEDS ORDERED: FLU VACC QS2021-22(6MOS UP)/PF 60 MCG/0.5 ML SYRINGE IM ONE (09:00)
[2021-05-12] MEDS ORDERED: Enoxaparin Sodium 40 MG/0.4 ML SYRINGE SC SCH (09:00)
[2021-05-12] MEDS ORDERED: Losartan 25 MG TAB PO SCH ×2 (09:00→19:45)
[2021-05-12] MEDS: Heparin 25,000 units/D5W 500 ML IVPB SCH (18:06)
[2021-05-12] MEDS: Atorvastatin Calcium 40 MG TAB PO SCH (20:51)
[2021-05-13 04:56] LABS: INR-International Normal Ratio 1.2; Prothrombin Time 15.4 sec (12.0-14.7)
[2021-05-13] MEDS: Furosemide 100 MG/10 ML VIAL SLOW IVP SCH ×2 (05:42→15:56)
[2021-05-13] MEDS: Aspirin Chewable 81 MG TAB PO SCH (07:57)
[2021-05-13] MEDS: Losartan 25 MG TAB PO SCH (07:57)
[2021-05-13] MEDS: Spironolactone 25 MG TAB PO SCH (07:58)
[2021-05-13] MEDS: Carvedilol 6.25 MG TAB PO SCH ×2 (07:58→16:04)
[2021-05-13] MEDS ORDERED: Apixaban 5 MG TAB PO SCH (11:15)
[2021-05-13 20:40] LABS: Hemoglobin 15.5 g/dL (14.0-18.0); Platelet Count 315 thou/uL (130-400)
[2021-05-13] MEDS: Atorvastatin Calcium 40 MG TAB PO SCH (20:41)
[2021-05-13] MEDS: Apixaban 5 MG TAB PO SCH (20:42)
[2021-05-14] MEDS: Furosemide 100 MG/10 ML VIAL SLOW IVP SCH ×2 (05:17→14:50)
[2021-05-14 05:25] LABS: INR-International Normal Ratio 1.3; Prothrombin Time 16.2 sec (12.0-14.7)
[2021-05-14 05:47] LABS: Anion Gap 13 mmol/L (10-20); BUN (Urea Nitrogen) 20 mg/dL (8.4-25.7); Calc. Creatinine Clearance 66 mL/min (70-130); Calcium 8.9 mg/dL (7.8-10.44); Carbon Dioxide 29 mmol/L (22-29); Chloride 101 mmol/L (98-107); Glucose 85 mg/dL (70-105); Potassium 3.8 mmol/L (3.5-5.1); Sodium 139 mmol/L (136-145)
[2021-05-14 06:10] VITALS: BMI 18.8
[2021-05-14 09:05] VITALS: TEMP 97.2
[2021-05-14] MEDS: Carvedilol 6.25 MG TAB PO SCH (09:37)
[2021-05-14] MEDS: Spironolactone 25 MG TAB PO SCH (09:37)
[2021-05-14] MEDS: Losartan 25 MG TAB PO SCH (09:37)
[2021-05-14] MEDS: Aspirin Chewable 81 MG TAB PO SCH (09:38)
[2021-05-14] MEDS: Apixaban 5 MG TAB PO SCH (09:38)
[2021-05-14 11:46] VITALS: BP 165/103
== END 2021-05-14 14:40 | disposition home or self-care (01) | DRG 291 ==
LOC: 2NO 15:27
PROVIDERS: ADMIT Family Medicine; ATTEND Family Medicine
DX: I13.0 Hypertensive heart and chronic kidney disease with heart failure and stage 1 through stage 4 chronic kidney disease, or unspecified chronic kidney disease (principal); I50.23 Acute on chronic systolic (congestive) heart failure; N17.9 Acute kidney failure, unspecified; I82.411 Acute embolism and thrombosis of right femoral vein; Z20.822 Contact with and (suspected) exposure to COVID-19; I42.8 Other cardiomyopathies; F10.10 Alcohol abuse, uncomplicated; N18.30 Chronic kidney disease, stage 3 unspecified; R79.89 Other specified abnormal findings of blood chemistry; I08.3 Combined rheumatic disorders of mitral, aortic and tricuspid valves; I25.10 Atherosclerotic heart disease of native coronary artery without angina pectoris; Z91.14 Patient's other noncompliance with medication regimen; Z82.49 Family history of ischemic heart disease and other diseases of the circulatory system; Z79.899 Other long term (current) drug therapy; Z28.21 Immunization not carried out because of patient refusal
CPT/HCPCS: 36415; 71045; 76770; 80048; 80053; 81001; 83735; 83880; 84100; 84443; 84484; 85014; 85018; 85025; 85049; 85610; 85730; 93005; 93010; 93306; 93798; 93970; 97139; J1644; J1940; U0003; U0005

== ENCOUNTER 2022-01-03 13:55 | Inpatient (IN) | payer OTHER, SELFPAY ==
[2022-01-03 14:36] LABS: #Eosinphils 0.4 thou/uL (0.0-0.7); #Monocytes 0.5 thou/uL (0.11-0.59); #Neutrophils 2.7 thou/uL (1.40-6.50); %Basophils 0.4 % (0.0-1.0); %Eosinophils 6.8 % (0.0-10.0); %Lymphocytes 35.3 % (21.0-51.0); %Monocytes 9.4 % (0.0-10.0); %Neutrophils 48.1 % (42.0-75.0); Hemoglobin 15.3 g/dL (14.0-18.0); Mean Corpuscular HGB CONC 31.8 g/dL (32.0-36.0); Mean Corpuscular Hemoglobin 28.2 pg (27.0-31.0); Mean Corpuscular Volume 88.8 fL (78.0-98.0); Mean Platelet Volume 7.4 fL (7.4-10.4); Platelet Count 374 thou/uL (130-400); RBC Distribution Width 15.7 % (11.5-14.5); Red Blood Cell (RBC) Count 5.43 mill/uL (4.70-6.10); White Blood Cell (WBC) Count 5.6 thou/uL (4.8-10.8)
[2022-01-03 14:58] LABS: ALT (SGPT) 20 U/L (8-55); AST (SGOT) 25 U/L (5-34); Albumin 3.9 g/dL (3.5-5.0); Alkaline Phosphatase 163 U/L (40-110); Anion Gap 14 mmol/L (10-20); BUN (Urea Nitrogen) 27 mg/dL (8.4-25.7); Bilirubin, Total 1.6 mg/dL (0.2-1.2); Calc. Creatinine Clearance 0 mL/min (70-130); Calcium 9.2 mg/dL (7.8-10.44); Carbon Dioxide 23 mmol/L (22-29); Chloride 106 mmol/L (98-107); Globulin 3.8 g/dL (2.4-3.5); Glucose 117 mg/dL (70-105); Potassium 3.8 mmol/L (3.5-5.1); Protein, Total 7.7 g/dL (6.0-8.3); Sodium 139 mmol/L (136-145)
[2022-01-03 15:20] LABS: CKMB 2.8 ng/mL (0-6.6)
[2022-01-03] MEDS ORDERED: Furosemide 40 MG/4 ML VIAL ONE (15:38)
[2022-01-03] MEDS ORDERED: Aspirin Chewable 81 MG TAB ONE (15:38)
[2022-01-03] MEDS ORDERED: Nitroglycerin 2% Ointment 1 INCH/1 GM Packet ONE (15:38)
[2022-01-03] MEDS ORDERED: Senokot S 8.6-50 MG TAB PO PRN (17:40)
[2022-01-03] MEDS ORDERED: Acetaminophen 325 MG TAB PO PRN (17:40)
[2022-01-03] MEDS ORDERED: Ondansetron PF 4 MG/2 ML Vial IVP PRN (17:40)
[2022-01-03] MEDS ORDERED: Bisacodyl 5 MG TAB PO PRN (17:40)
[2022-01-03] MEDS ORDERED: Nitroglycerin 0.4 MG TAB (25 Tab Bottle) SL PRN (17:47)
[2022-01-03] MEDS ORDERED: hydrALAZINE 20 MG/ML VIAL SLOW IVP PRN (17:47)
[2022-01-03 18:39] VITALS: BMI 22.1
[2022-01-03 18:51] LABS: Troponin I 0.021 ng/mL (< 0.028)
[2022-01-03] MEDS ORDERED: Apixaban 5 MG TAB PO SCH (21:00)
[2022-01-03] MEDS: Carvedilol 25 MG TAB PO SCH (21:03)
[2022-01-03] MEDS: hydrALAZINE 10 MG TAB PO SCH (21:03)
[2022-01-03] MEDS ORDERED: Furosemide 20 MG/2 ML VIAL ONE (21:45)
[2022-01-03] MEDS: Apixaban 5 MG TAB PO SCH (21:49)
[2022-01-03] MEDS ORDERED: Furosemide 20 MG/2 ML VIAL SLOW IVP SCH (22:00)
[2022-01-03 22:09] LABS: Troponin I 0.027 ng/mL (< 0.028)
[2022-01-04 04:49] LABS: #Eosinphils 0.4 thou/uL (0.0-0.7); #Lymphocytes 1.4 thou/uL (1.20-3.40); #Monocytes 0.5 thou/uL (0.11-0.59); #Neutrophils 2.5 thou/uL (1.40-6.50); %Basophils 0.7 % (0.0-1.0); %Eosinophils 9.1 % (0.0-10.0); %Lymphocytes 28.3 % (21.0-51.0); Hemoglobin 13.6 g/dL (14.0-18.0); Mean Corpuscular HGB CONC 31.2 g/dL (32.0-36.0); Mean Corpuscular Hemoglobin 27.6 pg (27.0-31.0); Mean Corpuscular Volume 88.4 fL (78.0-98.0); Mean Platelet Volume 7.3 fL (7.4-10.4); Platelet Count 317 thou/uL (130-400); RBC Distribution Width 15.4 % (11.5-14.5); Red Blood Cell (RBC) Count 4.92 mill/uL (4.70-6.10); White Blood Cell (WBC) Count 4.8 thou/uL (4.8-10.8)
[2022-01-04 05:28] LABS: ALT (SGPT) 15 U/L (8-55); AST (SGOT) 19 U/L (5-34); Albumin 3.1 g/dL (3.5-5.0); Alkaline Phosphatase 128 U/L (40-110); Anion Gap 13 mmol/L (10-20); BUN (Urea Nitrogen) 27 mg/dL (8.4-25.7); Bilirubin, Total 1.2 mg/dL (0.2-1.2); Calc. Creatinine Clearance 57 mL/min (70-130); Calcium 8.8 mg/dL (7.8-10.44); Carbon Dioxide 25 mmol/L (22-29); Chloride 106 mmol/L (98-107); Globulin 3.1 g/dL (2.4-3.5); Glucose 91 mg/dL (70-105); Potassium 3.6 mmol/L (3.5-5.1); Protein, Total 6.2 g/dL (6.0-8.3); Sodium 140 mmol/L (136-145)
[2022-01-04] MEDS ORDERED: Lansoprazole 3 MG/ML ORAL SUSPENSION PER TUBE SCH ×2 (09:00)
[2022-01-04] MEDS: Furosemide 40 MG/4 ML VIAL SLOW IVP SCH ×2 (09:20→15:01)
[2022-01-04] MEDS: Losartan 25 MG TAB PO SCH (09:21)
[2022-01-04] MEDS: Apixaban 5 MG TAB PO SCH ×2 (09:21→21:31)
[2022-01-04] MEDS: hydrALAZINE 10 MG TAB PO SCH ×3 (09:22→21:31)
[2022-01-04] MEDS: Carvedilol 25 MG TAB PO SCH ×2 (09:24→21:31)
[2022-01-04] MEDS: Aspirin Chewable 81 MG TAB PO SCH (09:34)
[2022-01-05 05:05] LABS: #Eosinphils 0.4 thou/uL (0.0-0.7); #Lymphocytes 1.3 thou/uL (1.20-3.40); #Monocytes 0.5 thou/uL (0.11-0.59); #Neutrophils 2.2 thou/uL (1.40-6.50); %Basophils 0.5 % (0.0-1.0); %Eosinophils 9.1 % (0.0-10.0); %Lymphocytes 29.9 % (21.0-51.0); %Monocytes 10.8 % (0.0-10.0); %Neutrophils 49.8 % (42.0-75.0); Hemoglobin 13.3 g/dL (14.0-18.0); Mean Corpuscular HGB CONC 31.5 g/dL (32.0-36.0); Mean Corpuscular Hemoglobin 28.1 pg (27.0-31.0); Mean Corpuscular Volume 89.2 fL (78.0-98.0); Mean Platelet Volume 7.4 fL (7.4-10.4); Platelet Count 319 thou/uL (130-400); RBC Distribution Width 15.3 % (11.5-14.5); Red Blood Cell (RBC) Count 4.71 mill/uL (4.70-6.10); White Blood Cell (WBC) Count 4.4 thou/uL (4.8-10.8)
[2022-01-05 05:28] LABS: ALT (SGPT) 14 U/L (8-55); AST (SGOT) 17 U/L (5-34); Albumin 2.9 g/dL (3.5-5.0); Alkaline Phosphatase 124 U/L (40-110); Anion Gap 12 mmol/L (10-20); BUN (Urea Nitrogen) 25 mg/dL (8.4-25.7); Bilirubin, Total 0.8 mg/dL (0.2-1.2); Calc. Creatinine Clearance 58 mL/min (70-130); Calcium 8.2 mg/dL (7.8-10.44); Carbon Dioxide 27 mmol/L (22-29); Chloride 104 mmol/L (98-107); Globulin 2.9 g/dL (2.4-3.5); Glucose 98 mg/dL (70-105); Magnesium 1.7 mg/dL (1.6-2.6); Potassium 3.3 mmol/L (3.5-5.1); Protein, Total 5.8 g/dL (6.0-8.3); Sodium 140 mmol/L (136-145)
[2022-01-05] MEDS: Furosemide 40 MG/4 ML VIAL SLOW IVP SCH ×2 (05:50→15:08)
[2022-01-05] MEDS: Apixaban 5 MG TAB PO SCH ×2 (08:56→20:30)
[2022-01-05] MEDS: Spironolactone 25 MG TAB PO SCH (08:56)
[2022-01-05] MEDS: Aspirin Chewable 81 MG TAB PO SCH (08:56)
[2022-01-05] MEDS: hydrALAZINE 10 MG TAB PO SCH ×3 (08:57→20:30)
[2022-01-05] MEDS: Carvedilol 25 MG TAB PO SCH ×2 (08:57→20:30)
[2022-01-05] MEDS: Losartan 25 MG TAB PO SCH (08:57)
[2022-01-06] MEDS: Furosemide 40 MG/4 ML VIAL SLOW IVP SCH (06:16)
[2022-01-06] MEDS: Aspirin Chewable 81 MG TAB PO SCH (08:18)
[2022-01-06] MEDS: Carvedilol 25 MG TAB PO SCH (08:18)
[2022-01-06] MEDS: Spironolactone 25 MG TAB PO SCH (08:19)
[2022-01-06] MEDS: Apixaban 5 MG TAB PO SCH (08:19)
[2022-01-06] MEDS: hydrALAZINE 10 MG TAB PO SCH (08:19)
[2022-01-06] MEDS: Losartan 25 MG TAB PO SCH (08:19)
[2022-01-06 08:22] VITALS: TEMP 98.1
[2022-01-06 10:23] LABS: Anion Gap 15 mmol/L (10-20); BUN (Urea Nitrogen) 24 mg/dL (8.4-25.7); Calc. Creatinine Clearance 52 mL/min (70-130); Calcium 8.6 mg/dL (7.8-10.44); Carbon Dioxide 29 mmol/L (22-29); Chloride 102 mmol/L (98-107); Glucose 66 mg/dL (70-105); Potassium 3.5 mmol/L (3.5-5.1); Sodium 142 mmol/L (136-145)
[2022-01-06 13:32] VITALS: BP 110/75
== END 2022-01-06 17:20 | disposition home or self-care (01) | DRG 291 ==
LOC: ERS 13:55 → ERHOLD 17:45 → 2SW 01-04 06:25 → OBSVTOIN 01-04 10:44
PROVIDERS: ADMIT Internal Medicine; ATTEND Internal Medicine
DX: I13.0 Hypertensive heart and chronic kidney disease with heart failure and stage 1 through stage 4 chronic kidney disease, or unspecified chronic kidney disease (principal); I50.23 Acute on chronic systolic (congestive) heart failure; N18.31 Chronic kidney disease, stage 3a; Z20.822 Contact with and (suspected) exposure to COVID-19; F10.10 Alcohol abuse, uncomplicated; I42.8 Other cardiomyopathies; Z86.718 Personal history of other venous thrombosis and embolism; Z91.14 Patient's other noncompliance with medication regimen; Z79.899 Other long term (current) drug therapy; Z79.01 Long term (current) use of anticoagulants; Z79.82 Long term (current) use of aspirin
CPT/HCPCS: 36415; 71045; 80048; 80053; 82553; 83735; 83880; 84484; 85025; 93005; 93306; J1940; U0003; U0005